=== PATIENT | male | born 1980 | race Caucasian/White ===

== ENCOUNTER → 2020-04-18 15:03 | Outpatient (BNVA) | payer OTHER, SELFPAY | PROVIDERS: PCP Internal Medicine; Referring Provider Internal Medicine; Visit Provider Urology | DX: Z76.89 Persons encountering health services in other specified circumstances (principal) ==

== ENCOUNTER 2021-02-10 07:12 | Outpatient (REF) | payer OTHER, SELFPAY ==
[2021-02-10 08:16] LABS: MANUAL DIFF FLAG NO
[2021-02-10 08:26] LABS: Basophils Percent Auto 0.2 % (0-2); Eosinophils Absolute Auto 0.2 X10*3/uL (0.0-0.4); Eosinophils Percent Auto 4.2 % (0-4); Hematocrit 44.2 % (42-52); Hemoglobin 15.2 g/dl (14.0-18.0); Imm Gran Abs Auto 0.01 X10*3/uL (0.00-0.03); Imm Gran Pct Auto 0.2 % (0.0-0.4); Lymphocytes Absolute Auto 1.5 X10*3/uL (1.2-4.9); Lymphocytes Percent Auto 36.4 % (20-40); Mean Corpuscular HGB Conc 34.4 g/dl (31.0-36.0); Mean Corpuscular Hemoglobin 29.7 pg (27.0-33.0); Mean Corpuscular Volume 86.3 fL (80-98); Mean Platelet Volume 10.4 fL (9.4-12.4); Monocytes Absolute Auto 0.5 X10*3/uL (0.1-1.2); Platelet Count 186 X10*3/uL (160-400); Red Blood Count 5.12 X10*6/uL (4.60-5.80); Red Cell Distribution Width 12.5 % (11.0-16.0); White Blood Count 4.1 X10*3/uL (4.8-10.8)
[2021-02-10 08:51] LABS: Anion Gap 10 (12-20); Blood Urea Nitrogen 14 mg/dL (9-16); Carbon Dioxide 29 mmol/L (22-29); Chloride 107 mmol/L (96-108); Cholesterol 172 mg/dL; Estimated Glomerular Filt Rate > 60; Glucose Fasting 95 mg/dL (60-99); HDL Cholesterol 49 mg/dL; LDL Cholesterol Calculated 110 mg/dl; Potassium 4.7 mmol/L (3.3-5.1); Sodium 141 mmol/L (135-145); Triglycerides 68 mg/dL
[2021-02-10 09:03] LABS: TSH reflex Free T4 2.93 uIU/mL (0.32-4.0)
== END 2021-02-10 07:13 | disposition home or self-care (01) ==
LOC: HO.LAB 07:12
PROVIDERS: PCP Internal Medicine; Visit Provider Nurse Practitioner Family
DX: Z00.00 Encounter for general adult medical examination without abnormal findings (principal)
CPT/HCPCS: 36415; 80048; 80061; 84443; 85025

== ENCOUNTER → 2021-07-31 15:16 | Outpatient (BNVA) | payer OTHER, SELFPAY | PROVIDERS: PCP Internal Medicine; Referring Provider Internal Medicine; Visit Provider Internal Medicine Cardiovascular Disease | DX: E78.5 Hyperlipidemia, unspecified (principal); Z82.49 Family history of ischemic heart disease and other diseases of the circulatory system | CPT/HCPCS: 93005 ==

== ENCOUNTER → 2021-09-11 07:28 | Outpatient (REF) | payer OTHER, SELFPAY ==
--- NOTE | 2021-09-11 07:34 | CA_ITS ---
Transthoracic Echocardiogram Patient (Last, First, Middle): Jaime Rich J Gender: Male Date of : 1980 Age: 41 Procedure Date: 09/11/2021 Procedure Type: Transthoracic Echocardiogram Location: OP Height: 185.42 cm Weight: 81.65 kg BSA: 2.06 m2 Heart Rate: bpm BP: 119 / 80 mmHg Steam Drier Tender: ANTON Referring MD: Jann Soares MD Symptoms: Z82.49 - Family history of ischemic heart disease and oth... Study Quality: Fair ECG Rhythm: Sinus Conclusions: - The left ventricular systolic function is low normal. The visually estimated ejection fraction is between 50-55%. - There is mild calcification of the aortic valve. - No obvious valvular pathology seen on this study. - The sinuses of valsalva, sino tubular ridge, and asc aorta are normal in size. Findings Left Ventricle Normal left ventricular cavity size. There is normal left ventricular wall thickness. The left ventricular systolic function is low normal. The visually estimated ejection fraction is between 50-55%. There is no evidence of regional wall motion abnormalities. Diastolic function is normal for age. Right Ventricle Normal right ventricular cavity size and systolic function. Atria Both atria are normal in size. Aortic Valve There is a normal trileaflet aortic valve. There is mild calcification of the aortic valve. There is no aortic valve stenosis. There is no aortic valve regurgitation. Mitral Valve The mitral valve appears normal. There is trace mitral valve regurgitation. There is no mitral valve stenosis. Pulmonic Valve The pulmonic valve is likely normal. Tricuspid Valve There is trace tricuspid valve regurgitation. The pulmonary artery systolic pressure is normal. Great Vessels The sinuses of valsalva, sino tubular ridge, and asc aorta are normal in size. Venous The inferior vena cava is normal in size and collapses greater than 50% with inspiration. Pericardium/Pleural There is no evidence of pericardial effusion. Prior Study Comparison No prior study available for comparison. Recommendations, Care & Conclusions No obvious valvular pathology seen on this study. Measurements 2D Linear Measurements IVSd: 0.65 0.6-0.9/0.6-1.0 cm LVIDd: 4.65 3.9-5.3/4.2-5.9 cm LVIDd Index: 2.26 2.4-3.2/2.2-3.1 cm/m2 LVIDs: 3.24 2.0-3.6 cm LVPWd: 0.87 0.7-1.1 cm LA Diam: 3.10 2.7-3.8/3.0-4.0 cm LAIDs Index: 1.50 1.5-2.3 cm/m2 LV Mass: 139.71 67-162/88-224 g LV Mass Index: 67.82 43-95/49-115 g/m2 LVOT Diam: 2.30 3.0+(-)1.3 cm 2D Systolic Function EF 4C: 55.00 >55% EF 2C: 61.70 >55% EF BiP: 56.60 >55% Mitral Valve MV Pk E: 0.45 MV PK A: 0.40 MV Decel Time: 264.00 E/A: 1.10 E'Lateral: 12.50 E'Medial: 10.40 E/E' Med: 4.30 E/E' Lat: 3.60 PHT: 77.00 MVA PHT: 2.86 Decel [place]: 1.71 Aortic Valve AoV Pk John: 0.93 AoV Mn John: 0.64 AoV VTI: 0.20 AoV Pk Grad: 3.00 Aov Mn Grad: 2.00 MADHURI Cont.VTI: 3.04 LVOT LVOT Pk John: 0.74 LVOT Mn John: 0.51 LVOT VTI: 0.15 LVOT Pk Grad: 2.00 LVOT Mn Grad: 1.00 LVOT Diam: 2.30 LVOT Area: 4.15 Diastolic Function MV Pk E: 0.45 MV Pk A: 0.40 E/A: 1.10 E'Medial: 10.40 E/E' Med: 4.30 E' Laterial: 12.50 E/E' Lat: 3.60 Right Ventricle TAPSE (mm): 23.00 TVS' John: 12.00 Tricuspid Valve TR Pk John: 2.12 TR Pk Grad: 18.00 RA Press: 3.00 RVSP: 21.00 Great Vessels Aorta Sinus of Valsalva: 3.60 2.0-3.5 cm Ao Asc: 3.20 2.1-3.4 cm Ao Arch: 3.50 Updated in Other Vendor System with Status of Final Bharath Maurer MD electronically signed on 09/11/2021 4:27:11 PM with status of Final
== END ==
LOC: HO.CARD 07:28
PROVIDERS: Visit Provider Internal Medicine Cardiovascular Disease
DX: Z82.49 Family history of ischemic heart disease and other diseases of the circulatory system (principal)
CPT/HCPCS: 93306

== ENCOUNTER 2022-02-06 07:45 | Outpatient (REF) | payer OTHER, SELFPAY ==
[2022-02-08 12:17] LABS: CRP High Sensitivity <0.3 mg/L
== END 2022-02-06 07:46 | disposition home or self-care (01) ==
LOC: HO.HMGCLDS 07:45
PROVIDERS: PCP Internal Medicine; Visit Provider Internal Medicine Cardiovascular Disease
DX: E78.5 Hyperlipidemia, unspecified (principal)
CPT/HCPCS: 36415; 86141

== ENCOUNTER 2022-02-07 07:47 | Outpatient (REF) | payer OTHER, SELFPAY ==
[2022-02-07 11:25] LABS: MANUAL DIFF FLAG NO
[2022-02-07 11:44] LABS: Basophils Percent Auto 0.3 % (0-2); Eosinophils Absolute Auto 0.1 X10*3/uL (0.0-0.4); Hematocrit 47.9 % (42.0-52.0); Hemoglobin 16.1 g/dl (14.0-18.0); Imm Gran Abs Auto 0.01 X10*3/uL (0.00-0.03); Imm Gran Pct Auto 0.3 % (0.0-0.4); Lymphocytes Absolute Auto 1.5 X10*3/uL (1.2-4.9); Mean Corpuscular HGB Conc 33.6 g/dl (31.0-36.0); Mean Corpuscular Hemoglobin 28.9 pg (27.0-33.0); Mean Corpuscular Volume 85.8 fL (80.0-98.0); Mean Platelet Volume 11.1 fL (9.4-12.4); Monocytes Absolute Auto 0.5 X10*3/uL (0.1-1.2); Monocytes Percent Auto 13.4 % (2-11); Neutrophils Absolute Auto 1.8 x10*3/uL (2.0-8.3); Platelet Count 196 X10*3/uL (160-400); Red Blood Count 5.58 X10*6/uL (4.60-5.80); Red Cell Distribution Width 12.1 % (11.0-16.0)
[2022-02-07 12:16] LABS: Erythrocyte Sedimentation Rate 1 MM/HR (0-15)
[2022-02-07 12:21] LABS: Folate 14.1 ng/mL (> or = 4.0); Vitamin B12 240 pg/mL (200-900)
[2022-02-07 12:48] LABS: Alanine Aminotransferase 15 U/L (0-40); Albumin Level 4.8 g/dL (3.5-5.0); Alkaline Phosphatase 50 U/L (39-117); Anion Gap 14 (12-20); Aspartate Amino Transferase 19 U/L (5-37); Bilirubin Total 1.3 mg/dL (0.0-1.0); Blood Urea Nitrogen 18 mg/dL (9-16); Calcium 10.2 mg/dL (8.4-10.2); Carbon Dioxide 30 mmol/L (22-29); Chloride 103 mmol/L (96-108); Cholesterol 203 mg/dL; Estimated Glomerular Filt Rate > 60; Glucose Random 93 mg/dL (60-115); HDL Cholesterol 48 mg/dL; LDL Cholesterol Calculated 129 mg/dl; Potassium 5.4 mmol/L (3.3-5.1); Sodium 142 mmol/L (135-145); Total Protein 7.4 g/dL (6.5-8.0); Triglycerides 134 mg/dL
[2022-02-07 12:49] LABS: Free T4 (Free Thyroxine) 0.92 ng/dL (0.71-1.85)
[2022-02-07 13:51] LABS: Thyroid Stimulating Hormone 2.73 uIU/mL (0.32-4.0)
== END 2022-02-07 07:48 | disposition home or self-care (01) ==
LOC: HO.HMGCLDS 07:47
PROVIDERS: PCP Internal Medicine; Visit Provider Internal Medicine
DX: F41.8 Other specified anxiety disorders (principal); E78.00 Pure hypercholesterolemia, unspecified
CPT/HCPCS: 36415; 80053; 80061; 82607; 82746; 84439; 84443; 85025; 85652

== ENCOUNTER 2022-02-15 11:21 | Outpatient (REF) | payer OTHER, SELFPAY ==
[2022-02-15 14:18] LABS: Anion Gap 16 (12-20); Blood Urea Nitrogen 18 mg/dL (9-16); Calcium 9.9 mg/dL (8.4-10.2); Carbon Dioxide 27 mmol/L (22-29); Chloride 104 mmol/L (96-108); Estimated Glomerular Filt Rate > 60; Glucose Random 54 mg/dL (60-115); Potassium 4.8 mmol/L (3.3-5.1); Sodium 142 mmol/L (135-145)
[2022-02-15 14:41] LABS: Erythrocyte Sedimentation Rate 1 MM/HR (0-15)
[2022-02-18 21:46] LABS: Lyme Abs Screen <0.90 index
== END 2022-02-15 11:22 | disposition home or self-care (01) ==
LOC: HO.HMGCLDS 11:21
PROVIDERS: PCP Internal Medicine; Visit Provider Internal Medicine
DX: M77.8 Other enthesopathies, not elsewhere classified (principal); E87.5 Hyperkalemia
CPT/HCPCS: 36415; 80048; 85652; 86617; 86618

== ENCOUNTER 2022-03-26 07:48 | Outpatient (REF) | payer OTHER, SELFPAY ==
[2022-03-26 11:08] LABS: MANUAL DIFF FLAG NO
[2022-03-26 11:15] LABS: Appearance Urine Clear; Color Urine Yellow; Glucose Urine UA Negative (Negative); Leukocyte Esterase Urine Negative (Negative); Nitrite Urine Negative (Negative); PH 6.5 (5.0-9.0); Specific Gravity - Urine 1.015 (1.005-1.025); Urine Blood Negative (Negative); Urine Ketones Negative (Negative); Urine Protein Negative (Neg-Trace)
[2022-03-26 11:19] LABS: Bacteria Urine None Seen (None Seen); Hyaline Casts Urine 0-2 /LPF (0-2); RBC Urine 0-2 /HPF (0-2); Squamous Epithelial Cell Urine 0-2 /HPF (0-2); WBC Urine 0-5 /HPF (0-5)
[2022-03-26 11:36] LABS: Basophils Percent Auto 0.2 % (0-2); Eosinophils Absolute Auto 0.1 X10*3/uL (0.0-0.4); Eosinophils Percent Auto 3.2 % (0-4); Hematocrit 48.2 % (42.0-52.0); Imm Gran Abs Auto 0.02 X10*3/uL (0.00-0.03); Imm Gran Pct Auto 0.5 % (0.0-0.4); Lymphocytes Absolute Auto 1.5 X10*3/uL (1.2-4.9); Lymphocytes Percent Auto 34.1 % (20-40); Mean Corpuscular HGB Conc 33.2 g/dl (31.0-36.0); Mean Corpuscular Hemoglobin 28.6 pg (27.0-33.0); Mean Corpuscular Volume 86.1 fL (80.0-98.0); Mean Platelet Volume 10.6 fL (9.4-12.4); Monocytes Absolute Auto 0.5 X10*3/uL (0.1-1.2); Monocytes Percent Auto 11.9 % (2-11); Neutrophils Absolute Auto 2.2 x10*3/uL (2.0-8.3); Neutrophils Percent Auto 50.1 % (45-73); Platelet Count 199 X10*3/uL (160-400); Red Cell Distribution Width 12.6 % (11.0-16.0); White Blood Count 4.4 X10*3/uL (4.8-10.8)
[2022-03-26 12:03] LABS: Thyroid Stimulating Hormone 2.63 uIU/mL (0.32-4.0)
[2022-03-26 12:10] LABS: Alanine Aminotransferase 13 U/L (0-40); Albumin Level 4.6 g/dL (3.5-5.0); Alkaline Phosphatase 44 U/L (39-117); Anion Gap 14 (12-20); Aspartate Amino Transferase 17 U/L (5-37); Blood Urea Nitrogen 15 mg/dL (9-16); Carbon Dioxide 30 mmol/L (22-29); Chloride 104 mmol/L (96-108); Estimated Glomerular Filt Rate > 60; Glucose Random 88 mg/dL (60-115); Potassium 4.7 mmol/L (3.3-5.1); Sodium 143 mmol/L (135-145)
[2022-03-26 12:20] LABS: Erythrocyte Sedimentation Rate 1 MM/HR (0-15)
== END 2022-03-26 07:49 | disposition home or self-care (01) ==
LOC: HO.HMGCLDS 07:48
PROVIDERS: PCP Internal Medicine; Visit Provider Internal Medicine
DX: R42 Dizziness and giddiness (principal)
CPT/HCPCS: 36415; 80053; 81001; 84443; 85025; 85652

== ENCOUNTER 2022-04-16 | Outpatient (REF) | payer OTHER, SELFPAY | END 2022-04-16 00:01 | disposition home or self-care (01) | LOC: HO.HOSX | PROVIDERS: Visit Provider Physician Assistant | DX: Z13.89 Encounter for screening for other disorder (principal) ==

== ENCOUNTER 2022-07-10 11:46 | Outpatient (REF) | payer OTHER, SELFPAY ==
--- NOTE | 2022-07-10 10:15 | EMG_ITS ---
Please see scanned EMG / Nerve Conduction Report. MTDD
== END 2022-07-10 11:47 | disposition home or self-care (01) ==
LOC: HO.NEURO 11:46
PROVIDERS: PCP Internal Medicine; Visit Provider Internal Medicine
DX: R20.0 Anesthesia of skin (principal)
CPT/HCPCS: 95885; 95910

== ENCOUNTER → 2022-08-01 15:18 | Outpatient (BNVA) | payer OTHER, SELFPAY | PROVIDERS: PCP Internal Medicine; Referring Provider Internal Medicine; Visit Provider Internal Medicine Cardiovascular Disease | DX: Z91.89 Other specified personal risk factors, not elsewhere classified (principal) | CPT/HCPCS: 93005 ==

== ENCOUNTER → 2022-10-01 08:00 | Outpatient (BNVA) | payer OTHER, SELFPAY | PROVIDERS: PCP Internal Medicine; Visit Provider Psychiatry & Neurology Neurology | DX: Z13.89 Encounter for screening for other disorder (principal) ==

== ENCOUNTER → 2022-10-15 15:52 | Outpatient (REF) | payer OTHER, SELFPAY | LOC: HO.SL 15:52 | PROVIDERS: PCP Internal Medicine; Visit Provider Psychiatry & Neurology Neurology | DX: G47.00 Insomnia, unspecified (principal); R06.83 Snoring | CPT/HCPCS: 95806 ==

== ENCOUNTER 2022-11-19 07:48 | Outpatient (REF) | payer OTHER, SELFPAY ==
[2022-11-19 11:37] LABS: Hematocrit 46.2 % (42.0-52.0); Hemoglobin 15.5 g/dl (14.0-18.0); Mean Corpuscular HGB Conc 33.5 g/dl (31.0-36.0); Mean Corpuscular Hemoglobin 29.2 pg (27.0-33.0); Platelet Count 185 X10*3/uL (160-400); Red Blood Count 5.31 X10*6/uL (4.60-5.80); Red Cell Distribution Width 12.2 % (11.0-16.0); White Blood Count 4.1 X10*3/uL (4.8-10.8)
[2022-11-19 12:06] LABS: Anion Gap 11 (12-20); Blood Urea Nitrogen 17 mg/dL (9-16); Calcium 10.4 mg/dL (8.4-10.2); Carbon Dioxide 30 mmol/L (22-29); Chloride 105 mmol/L (96-108); Estimated Glomerular Filt Rate > 60; Glucose Random 72 mg/dL (60-115); Potassium 4.3 mmol/L (3.3-5.1); Sodium 142 mmol/L (135-145)
== END 2022-11-19 07:49 | disposition home or self-care (01) ==
LOC: HO.HMGCLDS 07:48
PROVIDERS: PCP Internal Medicine; Visit Provider Nurse Practitioner Family
DX: R42 Dizziness and giddiness (principal)
CPT/HCPCS: 36415; 80048; 85027

== ENCOUNTER 2022-12-13 14:12 | Outpatient (AMB) | payer OTHER, SELFPAY ==
--- NOTE | 2022-12-13 14:19 | MHC.OFFVIS ---
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 He is seen for the following urologic conditions - anxiety about health - vasectomy consultation Repeat evaluation Vasectomy evaluation The patient presents for vasectomy consultation. He is currently He has fathered multiple children with single partner The youngest child is greater than 1-year-old His partner is aware and permissive for vasectomy. Current form of control is hormonal The vasectomy may be complicated due to a history of no complicating issues, inguinal hernia repair, orchidopexy, history of orchitis, orchiectomy. Patient education has been provided via AUA video, via printed information, risks of failure, recovery time, bruising and potential pain syndrome have been stressed Discussion today focused on the presence of vasectomy and the risks, benefits and alternatives that are available. Vasectomy as intended as a permanent form of control. Printed information and literature was provided to the patient. Overall there is a one in 2500 failure rate. This can occur at any time after vasectomy. Risks were discussed highlighting hematoma, spermatocele, epididymal congestion, development of sperm antibodies, and development of chronic pain estimated between 1-5%. The procedure was reviewed in detail. Anatomical diagrams of the male genitalia were used to explain the location of the vas deferens. The vas deferens will be transected, the proximal end will be cauterized, a metal clip would be applied to separate the 2 vas deferens ends. It was explained the procedure will be done in the office and takes approximately 10-15 minutes. Less common problems that arise with vasectomy include hematoma, bleeding, allergic reaction to anesthetic, epididymal infection, epididymal congestion, scrotal discomfort, spermatic leak, spermatic granuloma and the possibility of antisperm antibodies. He understands these risks and wishes to proceed. Consent was signed at the office today. He also understands that it takes 12 weeks for sperm to fully clear the system. He will need to provide a semen sample at 12 weeks and if this is not clear a 2nd sample at 16 weeks. Medical clearance to stop using protection will only be provided if he satisfies published criteria for sperm clearance. [facility] Medical History (Updated 12/13/22 @ 14:38 by Kevin Robles MD) Anxiety about health Bilateral arm pain Insomnia Snoring Tingling Upper back pain Surgical History H/O left wrist surgery Family History Father Aortic aneurysm Mother S/P CABG x 1 Maternal Grandmother Lung cancer Maternal Grandfather Myocardial infarction Paternal Grandfather Stomach cancer Parkinson disease Paternal Uncle Parkinson disease Social History Housing: House Alcohol intake: current Patient Tobacco Use Status: Never used Tobacco e-Cigarette/Vaping Use: Never Used Second Hand Smoke Exposure: No Current occupational status: employed Cognitive needs: No Hearing needs: No Vision needs: No Review of Systems Const Denies chills and Denies fever(s) Card Reports no additional complaints and Denies syncope Resp Denies cough GI Denies abdominal pain and Denies heartburn Reports as per HPI and Denies change in libido Neuro Denies syncope Psych Denies change in libido Endo Denies change in libido Physical Exam Const General: cooperative, healthy appearing, comfortable and no acute distress Orientation/consciousness: patient oriented x3 HEENT Face and sinus: Yes normal facial exam Mouth: moist mucous membranes Neck Neck: Yes normal visual inspection, Yes full ROM and Yes trachea midline Chest Chest palpation & inspection: normal inspection of the chest Resp Effort & Inspection: normal respiratory effort, able to speak in complete sentences and no respiratory distress GI Inspection: Yes normal to inspection Back/Spine/Pelvis Cervical Spine: normal cervical lordosis Thoracic/Lumbar Spine: thoracic and lumbar spine normal to inspection Skin General skin exam: no rashes or lesions noted Neuro General: patient oriented x3, gait normal, tone normal and moves all extremities Extrem General: Yes normal to inspection and Yes capillary refill normal Assessment & Plan Assessment & Plan (1) Anxiety about health: Code(s): F41.8 - Other specified anxiety disorders Plan Schedule vasectomy Medications: New diazepam Take medication after arrival at office 2 mg PO BID 1 day PRN 2 tabs 0RF anxiety F41.8 - Other specified anxiety disorders acetaminophen-codeine 300-30 mg 1 tab PO Q8H 3 days 9 tabs 0RF F41.8 - Other specified anxiety disorders Patient Instructions: Imaging studies, laboratory and physical exam results were discussed and reviewed in detail. No major barriers to patient understanding were identified. An opportunity to ask questions regarding the treatment plan was provided. All questions were answered. The patient expressed understanding and agreement with the above treatment plan. The patient is aware they should contact our office by phone for worsening of their current condition or the appearance of new urologic symptoms. Compliance is encouraged with any medications and followup testing that is ordered. It is a privilege to participate in the urologic care of your patient. If you have any questions or concerns regarding treatment for the above conditions, or other urologic issues, please do not hesitate to contact me. The office telephone contact is [phone]. This note is constructed using voice recognition software. While every effort has been made to ensure accuracy electric meter installer helper errors may have been included. Yours sincerely, Dr Kevin Robles MD, [facility] - Urology Providers of Expert, Compassionate Care for the Genitourinary System Coding Level of Care Code New Pt Level 4 (12490) Diagnoses Anxiety about health F41.8
== END 2022-12-13 14:38 | disposition home or self-care (01) ==
PROVIDERS: Visit Provider Urology
DX: Z30.09 Encounter for other general counseling and advice on contraception (principal); F41.8 Other specified anxiety disorders
CPT/HCPCS: 99214

== ENCOUNTER → 2022-12-13 14:12 | Outpatient (BNVA) | payer OTHER, SELFPAY | PROVIDERS: Visit Provider Urology ==

== ENCOUNTER 2023-02-20 07:39 | Outpatient (REF) | payer OTHER, SELFPAY ==
[2023-02-20 11:53] LABS: Calcium 10.2 mg/dL (8.4-10.2)
[2023-02-24 14:38] LABS: PTHI 25 pg/mL (16-77)
== END 2023-02-20 07:40 | disposition home or self-care (01) ==
LOC: HO.HMGCLDS 07:39
PROVIDERS: PCP Internal Medicine; Visit Provider Nurse Practitioner Family
DX: E83.52 Hypercalcemia (principal)
CPT/HCPCS: 36415; 82310; 83970

== ENCOUNTER 2023-02-20 14:52 | Outpatient (AMB) | payer OTHER, SELFPAY ==
--- NOTE | 2023-02-20 14:56 | AM.OFFWIN_ITS ---
Intake Vital Signs 02/20/23 15:00 Height 6 ft 1 in Weight 191 lb BMI 25.2 BP 122/80 Blood Pressure Location Rt brachial Position Sitting Pulse 67 Pulse Source Pulse Oximeter Temp 98.1 F Temp Source Oral Pulse Oximetry (%) 99 Oxygen Delivery Method Room Air Intake Visit Reasons: EST/groin pain Intake Note: Patient is here today for pain in groin area which he states Rt side feels uncomfortable. Pt states this started occurring from the beginning of December. Patient Tobacco Use Status: Never used Tobacco Allergies Seasonal Allergies Allergy (Intermediate, Verified 02/20/23 14:57) Sneezing Do you need a note to return to daycare/school/sports/work: No HPI HPI Comments History of Present Illness Details The patient presents to urgent care for evaluation groin pain. 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 He states that since that time it has been on and off with discomfort. He states that it bothers him after he has been walking or sitting for an extended period of time. He states that he gets pain that radiates up to his abdomen and causes some tingling in his abdomen. He denies scrotal pain or fullness. Denies abdominal pain. The patient reports that he occasionally uses ibuprofen for this. [facility] Medical History (Updated 12/13/22 @ 14:38 by Kevin Robles MD) Upper back pain Tingling Snoring Insomnia Bilateral arm pain Anxiety about health Surgical History H/O left wrist surgery Family History Father Aortic aneurysm Mother S/P CABG x 1 Maternal Grandmother Lung cancer Maternal Grandfather Myocardial infarction Paternal Grandfather Stomach cancer Parkinson disease Paternal Uncle Parkinson disease Social History Housing: House Alcohol intake: current Patient Tobacco Use Status: Never used Tobacco e-Cigarette/Vaping Use: Never Used Second Hand Smoke Exposure: No Current occupational status: employed Cognitive needs: No Hearing needs: No Vision needs: No Physical Exam Vital Signs: Last Vital Signs Temp 98.1 F 02/20/23 15:00 Pulse 67 02/20/23 15:00 BP 122/80 02/20/23 15:00 Pulse Ox 99 02/20/23 15:00 Oxygen Delivery Method Room Air 02/20/23 15:00 BMI result Body Mass Index 25.2 Const General: healthy appearing and no acute distress Orientation/consciousness: patient oriented x3 Eyes Corneas: corneas normal Pupils: Equal, round and reactive pupils present Chest Chest palpation & inspection: no tenderness Resp Effort & Inspection: normal respiratory effort and able to speak in complete sentences GI Other: Soft nontender Inspection: Yes normal to inspection Palpation (GI): nontender Neuro General: patient oriented x3 Cranial nerves: Yes Equal, round and reactive pupils present Extrem Other: Right lower extremity: Right groin muscle tenderness to palpation. No bruising no swelling. Full range of motion of the right lower extremity. Psych Appearance: grossly normal Attitude: cooperative Assessment & Plan Assessment & Plan (1) Strain of right groin: Code(s): S76.211A - Strain of adductor muscle, fascia and tendon of right thigh, initial encounter Plan Right groin strain. Recommend ibuprofen as needed. Follow-up with PCP return here for any reason Coding Level of Care Code Est Pt Level 3 (70911) Diagnoses Strain of right groin S76.211A
[2023-02-20 15:00] VITALS: BP 122/80; PULSE 67; TEMP 36.7; O2SAT 99; BMI 25.2
== END 2023-02-20 15:58 | disposition home or self-care (01) ==
PROVIDERS: PCP Internal Medicine; Visit Provider Emergency Medicine
DX: S76.211A Strain of adductor muscle, fascia and tendon of right thigh, initial encounter (principal)
CPT/HCPCS: 99213

== ENCOUNTER 2023-02-27 10:03 | Outpatient (AMB) | payer OTHER, SELFPAY ==
[2023-02-27 10:08] VITALS: BP 136/68; PULSE 58; O2SAT 98; BMI 24.9
--- NOTE | 2023-02-27 10:08 | A.OFFPC_ITS ---
Vital Signs 02/27/23 10:08 Height 6 ft 1 in Weight 189 lb BMI 24.9 BP 136/68 Blood Pressure Location Lt brachial Position Sitting Pulse 58 Pulse Source Pulse Oximeter Pulse Oximetry (%) 98 Oxygen Delivery Method Room Air Intake Visit Reasons: Groin pain Allergies Seasonal Allergies Allergy (Intermediate, Verified 02/27/23 10:08) Sneezing Medication List - Last Reconciled 02/27/23 by Erik Villasenor MD acetaminophen-codeine 300-30 mg 1 tab PO Q8H 3 days ciprofloxacin HCl 500 mg PO BID diazepam 2 mg PO BID PRN 1 day fluticasone propionate 50 mcg/actuation 1 spray intranasal DAILY meclizine 25 mg PO BID PRN Tobacco use date assessed: 11/12/22 Dental Screening Dental Screen Date: 02/27/23 Did you have a dental visit in the last 12 months?: Yes Did you have a dental problem in the last 6 months where you did not have access to dental care?: No Was dental information given to patient?: Patient has dentist HPI Groin pain HPI Details 42-year-old male with a history of gener alized anxiety disorder and insomnia coming in for follow-up. Patient was seen in July 2022 for dizziness.. 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 Also noted in November had evaluation for vasectomy but did not do do.. Patient had blood work done in October 2022 started 12/2022 , no rash or redness PFSH Medical History (Updated 02/27/23 @ 11:00 by Erik Villasenor MD) Right groin pain Upper back pain Tingling Snoring Insomnia Bilateral arm pain Anxiety about health Surgical History H/O left wrist surgery Family History (Updated 02/27/23 @ 10:09 by Chio Díaz CMA) Father Aortic aneurysm Mother S/P CABG x 1 Maternal Grandmother Lung cancer Maternal Grandfather Myocardial infarction Paternal Grandfather Stomach cancer Parkinson disease Paternal Uncle Parkinson disease Social History Housing: House Alcohol intake: current Patient Tobacco Use Status: Never used Tobacco e-Cigarette/Vaping Use: Never Used Second Hand Smoke Exposure: No Current occupational status: employed Cognitive needs: No Hearing needs: No Vision needs: No Questionnaire PHQ-9 Over the last 2 weeks, how often have you been bothered by any of the following problems? 1. Little interest or pleasure in doing things: not at all 2. Feeling down, depressed, or hopeless: not at all 3. Trouble falling or staying asleep, or sleeping too much: not at all 4. Feeling tired or having little energy: not at all 5. Poor appetite or overeating: not at all 6. Feeling bad about yourself - or that you are a failure or have let yourself or your family down: not at all 7. Trouble concentrating on things, such as reading the newspaper or watching television: not at all 8. Moving or speaking so slowly that other people could have noticed. Or the opposite - being so fidgety or restless that you have been moving around a lot more than usual: not at all 9. Thoughts that you would be better off or of hurting yourself in some way: not at all Total score: 0 Depression Screening Interpretation: Negative Source: Developed by Drs. Chepe Haney, Mary Hong, Nader Chase and colleagues, with an educational cecilia from [employer]. Thrive Questionnaire Date Thrive assessed: 07/04/22 AUDIT C Alcohol Use Questionnaire (AUDIT-C) 1. How often do you have a drink containing alcohol?: Monthly or less 2. How many drinks containing alcohol do you have on a typical day when you are drinking?: 1 or 2 3. How often do you have six or more drinks on one occasion?: Never Total Score: 1 Score Reviewed/Action Taken: No ANNIA-7 AMB Questionnaire ANNIA-7 Date ANNIA - 7 assessed: 07/04/22 Source: Developed by Drs. Chepe Haney, Nader Anand and colleagues, with an educational cecilia from [employer]. Physical exam (Primary Care) Vital Signs: Last Vital Signs Pulse 58 02/27/23 10:08 BP 136/68 02/27/23 10:08 Pulse Ox 98 02/27/23 10:08 Oxygen Delivery Method Room Air 02/27/23 10:08 BMI result Body Mass Index 24.9 Tobacco/Smoking Status: Tobacco use Status Tobacco use date assessed 11/12/22 02/27/23 10:09 Patient Tobacco Use Status Never used Tobacco 02/27/23 10:09 e-Cigarette/Vaping Use Never Used 02/27/23 10:09 PHQ-9: PHQ-9 Score PHQ-9: Total score 0 02/27/23 10:44 Depression Screening Interpretation: Negative Thrive Assessment: Date of Thrive Assessment Date Thrive assessed 07/04/22 02/27/23 10:09 Const General: alert; No acute distress Eyes Conjunctivae: conjunctivae normal Resp Auscultation: clear to auscultation bilaterally Cardio Rate: regular rate Rhythm: regular rhythm GI Inspection: Yes normal to inspection Other: mild tender R testicle no swelling no redness noted no hernias noted also Extrem General: Yes normal to inspection and No edema Results AMB Urinalysis, Automated UA Leukoctes 0 Aye/uL Last Edit by Chio Díaz CMA on 02/27/23 11:01 UA Nitrite Negative Last Edit by Chio Díaz CMA on 02/27/23 11:01 UA Urobilinogen 0.2 mg/dL Last Edit by Chio Díaz [facility] on 02/27/23 11:01 UA Protein 0 mg/dL Last Edit by Chio Díaz CMA on 02/27/23 11:01 UA pH 6.0 Last Edit by Chio Díaz CMA on 02/27/23 11:01 UA Blood 0 Francois/uL Last Edit by Chio Díaz CMA on 02/27/23 11:01 UA Specific [place] 1.015 Last Edit by Chio Díaz CMA on 02/27/23 11:01 UA Ketone Negative Last Edit by Chio Díaz CMA on 02/27/23 11:01 UA Bilirubin 0 mg/dL Last Edit by Chio Díaz CMA on 02/27/23 11:01 UA Glucose 0 mg/dL Last Edit by Chio Díaz CMA on 02/27/23 11:01 Assessment and Plan Assessment & Plan (1) Right groin pain: Code(s): R10.31 - Right lower quadrant pain Plan: No groin pain (2) Generalized anxiety disorder: Code(s): F41.1 - Generalized anxiety disorder Plan: Continue with medication (3) Acute epididymitis: Code(s): N45.1 - Epididymitis Plan: Dating as epididymitis, ultrasound requested Orders: Orders AMB Urinalysis Automated Today R10.31 - Right lower quadrant pain, Z13.9 - Encounter for screening, unspecified US scrotum Today N45.1 - Epididymitis Medications: New ciprofloxacin HCl 500 mg PO BID 14 tabs 0RF N45.1 - Epididymitis ciprofloxacin HCl 500 mg PO BID 14 tabs 0RF N45.1 - Epididymitis Coding Level of Care Code Est Pt Level 3 (97958) Diagnoses Right groin pain R10.31 Generalized anxiety disorder F41.1 Acute epididymitis N45.1
== END 2023-02-27 11:04 | disposition home or self-care (01) ==
PROVIDERS: PCP Internal Medicine; Visit Provider Internal Medicine
DX: R10.31 Right lower quadrant pain (principal); F41.1 Generalized anxiety disorder; N45.1 Epididymitis
CPT/HCPCS: 81003; 99213

== ENCOUNTER 2023-03-20 13:08 | Outpatient (REF) | payer OTHER, SELFPAY ==
--- NOTE | ~2023-03-20 | US_ITS ---
EXAMINATION: US SCROTUM CLINICAL INFORMATION: Epididymitis. COMPARISON: None available. TECHNIQUE: A sonogram of the scrotum was performed assessing hopkins-scale appearance and color Doppler flow. Spectral Doppler analysis of the arterial and venous flow were performed in the testes bilaterally. FINDINGS: RIGHT: Right testicle measures 4.70 x 2.37 x 3.71 cm, volume 21.6 mL. No focal testicular parenchymal lesions are visualized. Spectral Doppler analysis of the arterial and venous flow is normal in the right testis. Right epididymal head is normal in size. Trace physiologic volume fluid in the scrotal sac. No definite varicocele. Right epididymal Doppler flow is normal. LEFT: Left testicle measures 4.70 x 2.30 x 3.47 cm, volume 19.6 mL. No focal testicular parenchymal lesions are visualized. Spectral Doppler analysis of the arterial and venous flow is normal in the left testis. Left epididymal head is normal in size. Trace physiologic volume of fluid in the scrotal sac. Small left varicocele. Left epididymal Doppler flow is increased. US/US scrotum IMPRESSION: 1. Left epididymal Doppler flow is increased which can be seen in the setting of epididymitis.. 2. Small left varicocele.
== END 2023-03-20 13:09 | disposition home or self-care (01) ==
LOC: HO.HMGCX 13:08
PROVIDERS: PCP Internal Medicine; Visit Provider Internal Medicine
DX: N45.1 Epididymitis (principal)
CPT/HCPCS: 76870

== ENCOUNTER 2023-04-15 07:55 | Outpatient (AMB) | payer OTHER, SELFPAY ==
[2023-04-15 08:06] VITALS: BP 122/78; PULSE 78; TEMP 36.7; O2SAT 98; BMI 25.1
--- NOTE | 2023-04-15 08:06 | AM.OFFWIN_ITS ---
Intake Vital Signs 04/15/23 08:06 Height 6 ft 1 in Weight 190 lb BMI 25.1 BP 122/78 Blood Pressure Location Rt brachial Position Sitting Pulse 78 Pulse Source Pulse Oximeter Temp 98.1 F Temp Source Temporal Artery Scan Pulse Oximetry (%) 98 Oxygen Delivery Method Room Air Intake Visit Reasons: EST/sore throat(lobby masked) Intake Note: pt is here for c/o sore throat Patient Tobacco Use Status: Never used Tobacco Allergies Seasonal Allergies Allergy (Intermediate, Verified 04/15/23 08:07) Sneezing Do you need a note to return to daycare/school/sports/work: Yes HPI HPI Comments History of Present Illness Details Patient is a 42-year-old male in today for a sick visit. Patient states that for the past day he has experienced body aches, chills, and a sore throat which hurts when he swallows. He denies chest pain and difficulty breathing. 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 Denies cough, wheeze, ear pain. Has tried at home remedies like salt water gargle with some relief. [facility] Medical History (Updated 02/27/23 @ 11:00 by Erik Villasenor MD) Right groin pain Upper back pain Tingling Snoring Insomnia Bilateral arm pain Anxiety about health Surgical History H/O left wrist surgery Family History (Updated 02/27/23 @ 10:09 by Chio Díaz CMA) Father Aortic aneurysm Mother S/P CABG x 1 Maternal Grandmother Lung cancer Maternal Grandfather Myocardial infarction Paternal Grandfather Stomach cancer Parkinson disease Paternal Uncle Parkinson disease Social History Housing: House Alcohol intake: current Patient Tobacco Use Status: Never used Tobacco e-Cigarette/Vaping Use: Never Used Second Hand Smoke Exposure: No Current occupational status: employed Cognitive needs: No Hearing needs: No Vision needs: No Review of Systems Const Details: Constitutional : No Weight loss, No Fever, Admits body aches and chills. ENT/Mouth : Sore throat, No Rhinorrhea Eyes: No Eye Pain, No Swelling, No Redness Cardiovascular : No Chest Pain, No SOB, No Dyspnea on Exertion, No Orthopnea, No Edema, No Palpitations Respiratory : No Cough, No Sputum, No Wheezing Neuro : No Weakness, No Numbness, No Dizziness, No Headache All other systems reviewed and are negative All systems reviewed & are unremarkable except as noted in HPI and below Physical Exam Vital Signs: Last Vital Signs Temp 98.1 F 04/15/23 08:06 Pulse 78 04/15/23 08:06 BP 122/78 04/15/23 08:06 Pulse Ox 98 04/15/23 08:06 Oxygen Delivery Method Room Air 04/15/23 08:06 BMI result Body Mass Index 25.1 Vital signs reviewed and are stable Appearance: Alert.? Oriented X3.? No acute distress.? Head: Normocephalic, atraumatic, no step-offs or deformities Eyes: Pupils equal, round and reactive to light.? ENT: Pharynx erythema with no exudate. ? Neck: Normal inspection.? Neck supple.? CVS: Normal heart rate and rhythm.? Pulses normal.? Respiratory: No respiratory distress.? Breath sounds normal.? Neuro: Oriented X 3.? Results AMB Rapid Strep AMB Rapid Strep Negative Last Edit by Johnathan Galvan CMA on 04/15/23 08 :31 Assessment & Plan Assessment & Plan (1) Pharyngitis: Code(s): J02.9 - Acute pharyngitis, unspecified Qualifiers: Pharyngitis/tonsillitis etiology: unspecified etiology Qualified Code(s): J02.9 - Acute pharyngitis, unspecified Plan: The patient will be prescribed azithromycin and prednisone to be taken as directed. Patient has also been instructed that he can use [id number]-[id number] remedies like Tylenol and Motrin, as well as cepacol spray or drop. The patient indicates he will continue to use salt water gargle. He has been instructed to change out his toothbrush. He has been educated on signs of worsening symptoms and when to return to the walk-in or when to present to the emergency room. Orders: Orders AMB Rapid Strep Screen Today Z13.9 - Encounter for screening, unspecified SARS-CoV2/FLU/RSV Today J06.9 - Acute upper respiratory infection, unspecified Medications: New azithromycin 250 mg PO ONCE 6 tabs 0RF prednisone 40 mg (2 x 20 mg) PO DAILY 4 tabs 0RF Coding Level of Care Code Est Pt Level 3 (24309) Diagnoses Pharyngitis, unspecified etiology J02.9 Pharyngitis/tonsillitis etiology: unspecified etiology
== END 2023-04-15 09:06 | disposition home or self-care (01) ==
PROVIDERS: PCP Internal Medicine; Visit Provider Nurse Practitioner Primary Care
DX: J02.9 Acute pharyngitis, unspecified (principal)
CPT/HCPCS: 87880; 99213; 99499

== ENCOUNTER 2023-04-15 08:40 | Outpatient (REF) | payer OTHER, SELFPAY ==
[2023-04-15 14:39] LABS: Influenza A PCR NEGATIVE (Negative); Influenza B PCR NEGATIVE (Negative); Resp Syncy Virus RNA Qual PCR NEGATIVE (Negative); SARS COV2 PCR INHOUSE NEGATIVE (Negative)
== END 2023-04-15 08:41 | disposition home or self-care (01) ==
LOC: HO.LAB 08:40
PROVIDERS: Visit Provider Nurse Practitioner Primary Care
DX: J06.9 Acute upper respiratory infection, unspecified (principal); Z11.52 Encounter for screening for COVID-19
CPT/HCPCS: 0241U

== ENCOUNTER 2023-04-23 11:01 | Outpatient (AMB) | payer OTHER, SELFPAY ==
--- NOTE | 2023-04-23 11:10 | MHC.OFFVIS ---
Intake Intake Visit Reasons: Epididymitis Intake Note: Patient presents for office visit for epididymitis Urology Medications: none Blood Thinner: none Field Naturalist Required: No Accompanied by: Self / Same As Patient Allergies Seasonal Allergies Allergy (Intermediate, Verified 04/25/23 09:35) Sneezing Medication List - Last Reconciled 04/25/23 by GUTIERREZ Wright doxycycline hyclate 100 mg PO BID 14 days fluticasone propionate 50 mcg/actuation 1 spray intranasal DAILY meloxicam 15 mg PO DAILY 30 days sertraline 25 mg PO DAILY HPI HPI Comments History of Present Illness Details Jaime is a very pleasant 42-year-old male patient of Dr. Villasenor. He presents to the office today for follow-up of his ongoing right-sided groin/scrotal/testicular discomfort he has been experiencing. Discussed with the patient today he reports previously following up here with Dr. Robles approximately 4 months ago for vasectomy consultation however has since been experiencing right-sided scrotal/groin and testicular discomfort he has since postponed his vasectomy. He discusses in the late summer following up with urgent care for what he believed to be a groin strain after playing/kicking a soccer ball around. He states he then followed up with his PCP last month as the discomfort continued. In review of [facility] chart it appears scrotal ultrasound was ordered and performed. These results reviewed with the patient today. Left epididymal Doppler flow was increased which can be seen in the setting of epididymitis. Small left varicocele. He reports discomfort is intermittent and describes pain as a dull ache/sensation to his right-sided groin/scrotum. In assessment of the patient today left-sided scrotum/testicle with no abnormalities or pain elicited on exam. However, in assessment of the right-sided testicle in scrotum patient with right-sided testicular tenderness and epididymal head tenderness otherwise no lesions, lumps, and or masses noted. When asked he does report to be taking as needed Tylenol and or Motrin with improvement in discomfort. He reports discomfort to be a dull ache and reports it is intermittent in nature. He denies any associated nausea or vomiting. He otherwise denies any bothersome urinary issues or concerns. He denies urinary urgency, urinary frequency, incontinence, nocturia, hematuria, dysuria, foul smelling urine, changes to urinary stream, flank pain, fever, and or chills. He is happy with her current voiding parameters. In office urinalysis results reviewed with the patient today. He otherwise offers no other issues or concerns at this time. [facility] Medical History Right groin pain Upper back pain Tingling Snoring Insomnia Bilateral arm pain Anxiety about health Surgical History H/O left wrist surgery Family History Father Aortic aneurysm Mother S/P CABG x 1 Maternal Grandmother Lung cancer Maternal Grandfather Myocardial infarction Paternal Grandfather Stomach cancer Parkinson disease Paternal Uncle Parkinson disease Housing: House Alcohol intake: current Patient Tobacco Use Status: Never used Tobacco e-Cigarette/Vaping Use: Never Used Second Hand Smoke Exposure: No Current occupational status: employed Cognitive needs: No Hearing needs: No Vision needs: No Review of Systems Const All systems reviewed & are unremarkable except as noted in HPI and below Physical Exam Const General: cooperative, healthy appearing, comfortable, no acute distress, well developed, alert and awake Orientation/consciousness: patient oriented x3 Limitations: no limitations HEENT Head: Yes normal to inspection, Yes normocephalic and Yes atraumatic Ears: hearing grossly normal bilaterally Eyes General: appearance normal, both eyes and all related structures Neck Neck: Yes normal visual inspection and Yes trachea midline Chest Chest palpation & inspection: normal inspection of the chest Resp Effort & Inspection: normal respiratory effort and able to speak in complete sentences Cardio Rate: regular rate GI Inspection: Yes normal to inspection General: Yes no CVA tenderness Penis: normal penis Meatus: meatus normal Scrotum: scrotum normal Testes: epididymal tenderness (right side) and testicular tenderness on the right Back/Spine/Pelvis Back: no CVA tenderness Skin General skin exam: no rashes or lesions noted Neuro General: patient oriented x3 Extrem General: Yes normal to inspection Psych Appearance: grossly normal and well kempt Mental Status: mental status grossly normal Speech and movement: Normal speech and movement present and Clear speech present Affect: normal affect Attitude: cooperative Thought process: Normal thought process present Thought content: Normal thought content present Insight: Good insight present (Psych) Judgement: Good judgement present (Psych) Results AMB Urinalysis, Automated UA Leukoctes 0 Aye/uL Last Edit by Domenico Sousa on 04/23/23 11:38 UA Nitrite Negative Last Edit by Domenico Sousa on 04/23/23 11:38 UA Urobilinogen 0.2 mg/dL Last Edit by Domenico Sousa on 04/23/23 11:38 UA Protein 0 mg/dL Last Edit by [employer] Sousa on 04/23/23 11:38 UA pH 6.5 Last Edit by Domenico Sousa on 04/23/23 11:38 UA Blood 0 Francois/uL Last Edit by [employer] on 04/23/23 11:38 UA Specific [place] 1.015 Last Edit by [employer] Sousa on 04/23/23 11:38 UA Ketone Negative Last Edit by [employer] Sousa on 04/23/23 11:38 UA Bilirubin 0 mg/dL Last Edit by [employer] Sousa on 04/23/23 11:38 UA Glucose 0 mg/dL Last Edit by [employer] Sousa on 04/23/23 11:38 Results Reviewed Results Reviewed: Laboratory Last Values Urine pH (Auto) 6.5 04/23/23 11:16 Specific [place] (Auto) 1.015 04/23/23 11:16 Urine Protein (Auto) 0 mg/dL 04/23/23 11:16 Glucose (UA)(Auto) 0 mg/dL 04/23/23 11:16 Urine Ketones (Auto) Negative 04/23/23 11:16 Urine Blood (Auto) 0 Francois/uL 04/23/23 11:16 Urine Nitrite (Auto) Negative 04/23/23 11:16 Urine Bilirubin (Auto) 0 mg/dL 04/23/23 11:16 Urine Urobilinogen (Auto) 0.2 mg/dL 04/23/23 11:16 Leukocyte Esterase (Auto) 0 Aye/uL 04/23/23 11:16 Date of Service: 03/20/23 EXAMINATION: US SCROTUM FINDINGS: RIGHT: Right testicle measures 4.70 x 2.37 x 3.71 cm, volume 21.6 mL. No focal testicular parenchymal lesions are visualized. Spectral Doppler analysis of the arterial and venous flow is normal in the right testis. Right epididymal head is normal in size. Trace physiologic volume fluid in the scrotal sac. No definite varicocele. Right epididymal Doppler flow is normal. LEFT: Left testicle measures 4.70 x 2.30 x 3.47 cm, volume 19.6 mL. No focal testicular parenchymal lesions are visualized. Spectral Doppler analysis of the arterial and venous flow is normal in the left testis. Left epididymal head is normal in size. Trace physiologic volume of fluid in the scrotal sac. Small left varicocele. Left epididymal Doppler flow is increased. IMPRESSION: 1. Left epididymal Doppler flow is increased which can be seen in the setting of epididymitis.. 2. Small left varicocele. Assessment & Plan Assessment & Plan (1) Acute epididymitis: Code(s): N45.1 - Epididymitis (2) Right groin pain: Code(s): R10.31 - Right lower quadrant pain Plan In office urinalysis results reviewed with the patient today; as noted above. Discussed and stressed the importance of lifestyle modifications to assist with right-sided groin and scrotal pain patient has been experiencing. Start doxycycline as discussed and prescribed. Start Mobic as discussed and prescribed. Recent scrotal ultrasound results reviewed with the patient today; as noted above. Patient denies any bothersome urinary issues. Patient reports be happy with current voiding parameters. Reassurance provided Follow-up in 1 month; or sooner with any issues, concerns, and or questions. Orders: Orders AMB Urinalysis Automated 04/23/23 Z13.9 - Encounter for screening, unspecified Medications: New doxycycline hyclate 100 mg PO BID 14 days 28 tabs 0RF N39.0 - Urinary tract infection, site not specified, N45.1 - Epididymitis meloxicam 15 mg PO DAILY 30 days 30 tabs 0RF R10.31 - Right lower quadrant pain, R10.32 - Left lower quadrant pain Patient Instructions: The patient had an opportunity to ask questions regarding the treatment plan. All questions were answered. Physical exam, labs, and imaging were discussed and reviewed in detail. As well as risks, benefits, and discussion of treatment choices. No major barriers to understanding were identified. The patient expressed understanding and agreement with the above treatment plan. The patient was made aware they should contact our office by phone for worsening of their current condition, the appearance of new symptoms, or with any questions or concerns. Compliance is encouraged with any medications and follow up testing that is ordered. It is a privilege to be allowed the opportunity to participate in? your urological care.? Again, if you have any questions or concerns If you have any questions or concerns please do not hesitate to contact me. The office is [phone]. This note is constructed using voice recognition software. While every effort has been made to ensure accuracy labelling machine operator errors may have been included. Yours sincerely, GUTIERREZ Wright Coding Level of Care Code Est Pt Level 4 (96906) Diagnoses Acute epididymitis N45.1 Right groin pain R10.31
== END 2023-04-23 12:09 | disposition home or self-care (01) ==
PROVIDERS: PCP Internal Medicine; Visit Provider Nurse Practitioner Family
DX: N45.1 Epididymitis (principal); R10.31 Right lower quadrant pain
CPT/HCPCS: 99214

== ENCOUNTER → 2023-04-23 11:01 | Outpatient (BNVA) | payer OTHER, SELFPAY | PROVIDERS: PCP Internal Medicine; Visit Provider Nurse Practitioner Family | DX: N45.1 Epididymitis (principal); R10.31 Right lower quadrant pain | CPT/HCPCS: 81003 ==

== ENCOUNTER 2023-05-20 13:49 | Outpatient (AMB) | payer OTHER, SELFPAY ==
--- NOTE | 2023-05-20 13:52 | A.OFFVIS_ITS ---
Intake Intake Visit Reasons: 1m follow up Intake Note: Patient presents for office visit for Epididymitis Urology Medications: none Blood Thinner: none Trial Consultant Required: No Accompanied by: Self / Same As Patient Allergies Seasonal Allergies Allergy (Intermediate, Verified 05/20/23 15:13) Sneezing Medication List - Last Reconciled 05/20/23 by GUTIERREZ Wright doxycycline hyclate 100 mg PO BID 14 days fluticasone propionate 50 mcg/actuation 1 spray intranasal DAILY meloxicam 15 mg PO DAILY 30 days sertraline 25 mg PO DAILY HPI HPI Comments History of Present Illness Details Jaime is a very pleasant 42-year-old male patient of Dr. Villasenor. He presents to the office today for follow-up of his ongoing right-sided groin/scrotal/testicular discomfort he has been experiencing. Of note, patient was seen approximately 1 month ago at which time he was treated with 2 weeks of doxycycline and Mobic for epididymitis. In discussion with the patient today he reports significant improvement in right-sided groin pain and testicular discomfort he had been experiencing. He has since completed antibiotic therapy as prescribed. Prior to right-sided groin pain patient was to undergo vasectomy with Dr. Robles however this has been on hold. Discussed awaiting 2-3 months to ensure resolution of epididymitis prior to vasectomy. He otherwise denies any bothersome urinary issues or concerns. He denies urinary urgency, urinary frequency, incontinence, nocturia, hematuria, dysuria, foul smelling urine, eleonora nges to urinary stream, flank pain, fever, and or chills. He is happy with her current voiding parameters. In office urinalysis results reviewed with the patient today. He otherwise offers no other issues or concerns at this time. [facility] Medical History Right groin pain Upper back pain Tingling Snoring Insomnia Bilateral arm pain Anxiety about health Surgical History H/O left wrist surgery Family History Father Aortic aneurysm Mother S/P CABG x 1 Maternal Grandmother Lung cancer Maternal Grandfather Myocardial infarction Paternal Grandfather Stomach cancer Parkinson disease Paternal Uncle Parkinson disease Social History Housing: House Alcohol intake: current Patient Tobacco Use Status: Never used Tobacco e-Cigarette/Vaping Use: Never Used Second Hand Smoke Exposure: No Current occupational status: employed Cognitive needs: No Hearing needs: No Vision needs: No Review of Systems Const All systems reviewed & are unremarkable except as noted in HPI and below Physical Exam Const General: cooperative, healthy appearing, comfortable, no acute distress, well developed, alert and awake Nutritional Appearance: average body habitus Orientation/consciousness: patient oriented x3 Limitations: no limitations HEENT Head: Yes normal to inspection, Yes normocephalic and Yes atraumatic Ears: hearing grossly normal bilaterally Eyes General: appearance normal, both eyes and all related structures Neck Neck: Yes normal visual inspection and Yes trachea midline Chest Chest palpation & inspection: normal inspection of the chest Resp Effort & Inspection: normal respiratory effort and able to speak in complete sentences Cardio Rate: regular rate GI Inspection: Yes normal to inspection General: Yes no CVA tenderness Back/Spine/Pelvis Back: no CVA tenderness Skin General skin exam: no rashes or lesions noted Neuro General: patient oriented x3 Extrem General: Yes normal to inspection Psych Appearance: grossly normal and well kempt Mental Status: mental status grossly normal Speech and movement: Normal speech and movement present and Clear speech present Affect: normal affect Attitude: cooperative Thought process: Normal thought process present Thought content: Normal thought content present Insight: Good insight present (Psych) Judgement: Good judgement present (Psych) Results AMB Urinalysis, Automated UA Leukoctes 0 Aye/uL Last Edit by LEONID Herring on 05/20/23 14:02 UA Nitrite Negative Last Edit by LEONID Herring on 05/20/23 14:02 UA Urobilinogen 0.2 mg/dL Last Edit by LEONID Herring on 05/20/23 14:0 2 UA Protein 0 mg/dL Last Edit by Liban Chris A on 05/20/23 14:02 UA pH 6.0 Last Edit by Liban Chris A on 05/20/23 14:02 UA Blood 0 Francois/uL Last Edit by Liban Chris, RMA on 05/20/23 14:02 UA Specific [place] 1.025 Last Edit by Liban Chris A on 05/20/23 14: 02 UA Ketone Negative Last Edit by Liban Chris, RMA on 05/20/23 14:02 UA Bilirubin 0 mg/dL Last Edit by Liban Chris A on 05/20/23 14:02 UA Glucose 0 mg/dL Last Edit by Liban Chris A on 05/20/23 14:02 Results Reviewed Results Reviewed: Laboratory Last Values Urine pH (Auto) 6.0 05/20/23 14:01 Specific [place] (Auto) 1.025 05/20/23 14:01 Urine Protein (Auto) 0 mg/dL 05/20/23 14:01 Glucose (UA)(Auto) 0 mg/dL 05/20/23 14:01 Urine Ketones (Auto) Negative 05/20/23 14:01 Urine Blood (Auto) 0 Francois/uL 05/20/23 14:01 Urine Nitrite (Auto) Negative 05/20/23 14:01 Urine Bilirubin (Auto) 0 mg/dL 05/20/23 14:01 Urine Urobilinogen (Auto) 0.2 mg/dL 05/20/23 14:01 Leukocyte Esterase (Auto) 0 Aye/uL 05/20/23 14:01 Assessment & Plan Assessment & Plan (1) Acute epididymitis: Code(s): N45.1 - Epididymitis (2) Right groin pain: Code(s): R10.31 - Right lower quadrant pain Plan In office urinalysis results reviewed with the patient today; as noted above. Patient reports significant improvement in right-sided groin pain and scrotal pain he had been experiencing Discussed at length potential causes for epididymitis Continue Mobic as needed Patient denies any bothersome urinary issues. Patient reports be happy with current voiding parameters. Reassurance provided Discussed awaiting 2-3 months prior to scheduling vasectomy with Dr. Robles as planned to ensure for healing process. Patient will call to schedule vasectomy; or sooner with any issues, concerns, and or questions. Orders: Orders AMB Urinalysis Automated Today Z13.9 - Encounter for screening, unspecified Patient Instructions: The patient had an opportunity to ask questions regarding the treatment plan. All questions were answered. Physical exam, labs, and imaging were discussed and reviewed in detail. As well as risks, benefits, and discussion of treatment choices. No major barriers to understanding were identified. The patient expressed understanding and agreement with the above treatment plan. The patient was made aware they should contact our office by phone for worsening of their current condition, the appearance of new symptoms, or with any questions or concerns. Compliance is encouraged with any medications and follow up testing that is ordered. It is a privilege to be allowed the opportunity to participate in? your urological care.? Again, if you have any questions or concerns If you have any questions or concerns please do not hesitate to contact me. The office is [phone]. This note is constructed using voice recognition software. While every effort has been made to ensure accuracy hand gluer and slicer errors may have been included. Yours sincerely, GUTIERREZ Wright Coding Level of Care Code Est Pt Level 3 (40786) Diagnoses Acute epididymitis N45.1 Right groin pain R10.31
== END 2023-05-20 14:20 | disposition home or self-care (01) ==
PROVIDERS: PCP Internal Medicine; Visit Provider Nurse Practitioner Family
DX: N45.1 Epididymitis (principal); R10.31 Right lower quadrant pain; Z13.9 Encounter for screening, unspecified
CPT/HCPCS: 99213

== ENCOUNTER → 2023-05-20 13:49 | Outpatient (BNVA) | payer OTHER, SELFPAY | PROVIDERS: PCP Internal Medicine; Visit Provider Nurse Practitioner Family | DX: N45.1 Epididymitis (principal); R10.31 Right lower quadrant pain | CPT/HCPCS: 81003 ==

== ENCOUNTER 2023-07-11 12:31 | Outpatient (AMB) | payer OTHER, SELFPAY ==
[2023-07-11 12:33] VITALS: BP 120/80; PULSE 67; O2SAT 98; BMI 25.5
--- NOTE | 2023-07-11 12:33 | A.OFFPC_ITS ---
Vital Signs 07/11/23 12:33 Height 6 ft 1 in Weight 193 lb BMI 25.5 BP 120/80 Blood Pressure Location Lt brachial Position Sitting Pulse 67 Pulse Source Pulse Oximeter Pulse Oximetry (%) 98 Oxygen Delivery Method Room Air Intake Visit Reasons: Annual Exam Intake Note: Patient is here today for a physical. 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 Accompanied by: Self / Same As Patient Allergies Seasonal Allergies Allergy (Intermediate, Verified 07/11/23 12:37) Sneezing Medication List - Last Reconciled 07/11/23 by Erik Villasenor MD fluticasone propionate 50 mcg/actuation 1 spray intranasal DAILY PRN Tobacco use date assessed: 07/11/23 Dental Screening Dental Screen Date: 07/11/23 Did you have a dental visit in the last 12 months?: No Did you have a dental problem in the last 6 months where you did not have access to dental care?: No Was dental information given to patient?: Patient has dentist HPI Annual Exam HPI Details 43-year-old male with a history of gener alized anxiety disorder coming in for physical exam. Last seen in January having epididymitis and ultrasound was requested. And referral to Urology. Ongoing right-sided groin/s crotal/testicular discomfort has been treated with doxycycline and will be scheduling for vasectomy later. patient does havve a ff up wtih urology r groin still intermittent PFSH Medical History Right groin pain Upper back pain Tingling Snoring Insomnia Bilateral arm pain Anxiety about health Surgical History H/O left wrist surgery Family History Father Aortic aneurysm Mother S/P CABG x 1 Maternal Grandmother Lung cancer Maternal Grandfather Myocardial infarction Paternal Grandfather Stomach cancer Parkinson disease Paternal Uncle Parkinson disease Social History (Updated 07/11/23 @ 12:49 by Erik Villasenor MD) Housing: House Alcohol intake: current Comment: 4x a week 1 drink Patient Tobacco Use Status: Never used Tobacco e-Cigarette/Vaping Use: Never Used Second Hand Smoke Exposure: No Current occupational status: employed Cognitive needs: No Hearing needs: No Vision needs: No Questionnaire PHQ-9 Over the last 2 weeks, how often have you been bothered by any of the following problems? 1. Little interest or pleasure in doing things: not at all 2. Feeling down, depressed, or hopeless: not at all 3. Trouble falling or staying asleep, or sleeping too much: not at all 4. Feeling tired or having little energy: not at all 5. Poor appetite or overeating: not at all 6. Feeling bad about yourself - or that you are a failure or have let yourself or your family down: not at all 7. Trouble concentrating on things, such as reading the newspaper or watching television: not at all 8. Moving or speaking so slowly that other people could have noticed. Or the opposite - being so fidgety or restless that you have been moving around a lot more than usual: not at all 9. Thoughts that you would be better off or of hurting yourself in some way: not at all Total score: 0 Depression Screening Interpretation: Negative Depression Screening Done: Yes 79186 - PHQ-9 Billing: Yes Source: Developed by Drs. Chepe Haney, Mary Hong, Nader Chase and colleagues, with an educational cecilia from [employer]. Thrive Questionnaire Date Thrive assessed: 07/11/23 I am a: Patient What is your living situation today?: I have a steady place to live Within the past 12 months, did the food you bought not last and you didn't have the money to get more?: Never true Within the past 12 months, did you worry whether your food would run out before you got money to buy more?: Never true Do you have trouble paying for medicines?: No Do you have trouble getting transportation to medical appointments?: No Do you have trouble paying your heating and electricity bill?: No Do you have trouble taking care of your child, family member or friend?: No Do you have trouble with day-to-day activities such as bathing, preparing meals, shopping, managing finances, etc.?: No Are you currently unemployed and looking for a job?: No Are you interested in more education?: No Please select the resources that you would like help with: None Currently or been in a relationship where the following occur: no concerns reported THRIVE Score: 0 AUDIT C Alcohol Use Questionnaire (AUDIT-C) 1. How often do you have a drink containing alcohol?: Monthly or less 2. How many drinks containing alcohol do you have on a typical day when you are drinking?: 1 or 2 3. How often do you have six or more drinks on one occasion?: Never Total Score: 1 Score Reviewed/Action Taken: No ANNIA-7 AMB Questionnaire ANNIA-7 Date ANNIA - 7 assessed: 07/11/23 Feeling nervous, anxious, or on edge: 0 = Not at all Not being able to stop or control worryin = Not at all Worrying too much about different things: 0 = Not at all Trouble relaxin = Not at all Being so restless that it is hard to sit still: 0 = Not at all Becoming easily annoyed or irritable: 0 = Not at all Feeling afraid as if something awful might happen: 0 = Not at all Total ANNIA-7 score (0-4 normal; 5-9 mild; 10-14 moderate; 15-21 severe): 0 Source: Developed by Drs. Chepe Haney, Mary Hong, Nader Chase and colleagues, with an educational cecilia from [employer]. ANNIA-7 Assessment Billing ANNIA-7 Assessment Tool: ANNIA-7 Assessment 23410 Review of Systems Const Denies poor appetite and Denies weakness Eyes Denies no additional complaints ENT Reports Normal hearing present, Denies dizziness, Denies nasal congestion, Denies tinnitus and Denies sore throat Card Denies chest pain, Denies syncope, Denies rapid heart rate and Denies dyspnea Resp Denies cough and Denies dyspnea GI Denies change in stool character, Reports constipation, Denies diarrhea, Denies nausea and Denies vomiting Denies dysuria and Denies urinary frequency Neuro Reports Normal hearing present, Denies confusion, Denies dizziness, Denies syncope and Denies weakness Psych Denies confusion Physical exam (Primary Care) Vital Signs: Last Vital Signs Pulse 67 07/11/23 12:33 BP 120/80 07/11/23 12:33 Pulse Ox 98 07/11/23 12:33 Oxygen Delivery Method Room Air 07/11/23 12:33 BMI result Body Mass Index 25.5 Tobacco/Smoking Status: Tobacco use Status Tobacco use date assessed 07/11/23 07/11/23 12:39 Patient Tobacco Use Status Never used Tobacco 07/11/23 12:39 e-Cigarette/Vaping Use Never Used 07/11/23 12:39 PHQ-9: PHQ-9 Score PHQ-9: Total score 0 07/11/23 12:39 Depression Screening Interpretation: Negative Thrive Assessment: Date of Thrive Assessment Date Thrive assessed 07/11/23 07/11/23 12:39 Currently or been in a relationship where the following occur: no concerns reported Const General: alert and awake; No confusion Orientation/consciousness: No confusion HENMT Head: Yes normocephalic Ears: external ears normal and TM's normal bilaterally Face and sinus: Yes normal facial exam Mouth: moist mucous membranes Throat: Yes tonsils normal Eyes Conjunctivae: conjunctivae normal Pupils: Equal, round and reactive pupils present and Pupil accommodation reflex normal Direct Ophthalmoscopy: normal light reflex Neck Neck: No lymphadenopathy Thyroid: Thyroid normal Chest Chest palpation & inspection: normal inspection of the chest Resp Effort & Inspection: normal respiratory effort and no audible wheezes Auscultation: clear to auscultation bilaterally, no crackles, no wheezes and lung sounds not diminished Cardio Rate: regular rate Rhythm: regular rhythm Peripheral pulses: radial pulses present and dorsalis pedis present GI Palpation (GI): no masses Auscultation: normal bowel sounds and normoactive bowel sounds Rectal Exam - Male: Yes deferred Skin General skin exam: no rashes or lesions noted Rashes: no rashes Neuro General: deep tendon reflexes 2+ bilaterally and No confusion Cranial nerves: Yes Equal, round and reactive pupils present, Yes Midline tongue present, Yes Normal hearing present and Yes Ability to bilaterally elevate shoulders present Cognition (Neuro): normal cognition Gait exam (Neuro): Normal gait present Motor exam (neuro): 5/5 motor strength present throughout Deep tendon reflexes (DTR's): Right brachioradialis reflex intensity grade: 2+, Left brachioradialis reflex intensity grade: 2+, Right patellar reflex intensity grade: 2+ and Left patellar reflex intensity grade: 2+ Extrem General: No edema Assessment and Plan Assessment & Plan (1) Annual physical exam: Code(s): Z00.00 - Encounter for general adult medical examination without abnormal findings (2) Bilateral shoulder pain: Code(s): M25.511 - Pain in right shoulder; M25.512 - Pain in left shoulder (3) Acute epididymitis: Code(s): N45.1 - Epididymitis Plan: Patient has seen Urology and still having pain (4) Inguinal bulge: Code(s): R19.09 - Other intra-abdominal and pelvic swelling, mass and lump Plan: concern on inguinal hernia but this is not bad enough. will continue to monitor . if getting bigger will need to refer to the surgeon Medications: Changed From fluticasone propionate 50 mcg/actuation administer into each nostril 1 spray intranasal DAILY PRN To fluticasone propionate 50 mcg/actuation administer into each nostril 1 spray intranasal DAILY 16 grams 11RF Refilled fluticasone propionate 50 mcg/actuation administer into each nostril 1 spray intranasal DAILY 16 grams 11RF Coding Level of Care Code Est Pt Prev Care 40-64y(70818) Diagnoses Annual physical exam Z00.00 Bilateral shoulder pain M25.511; M25.512 Acute epididymitis N45.1 Inguinal bulge R19.09 Additional Codes ANNIA-7 Assessment Billing - ANNIA-7 Assessment Tool: ANNIA-7 Assessment 20261 ([id number])
== END 2023-07-11 13:07 | disposition home or self-care (01) ==
PROVIDERS: PCP Internal Medicine; Visit Provider Internal Medicine
DX: Z00.00 Encounter for general adult medical examination without abnormal findings (principal); M25.511 Pain in right shoulder; M25.512 Pain in left shoulder; N45.1 Epididymitis; R19.09 Other intra-abdominal and pelvic swelling, mass and lump
CPT/HCPCS: 99396

== ENCOUNTER 2023-08-06 09:31 | Outpatient (AMB) | payer OTHER, SELFPAY ==
--- NOTE | 2023-08-06 09:35 | A.OFFVIS_ITS ---
Intake Intake Visit Reasons: inguinal injection(vm to confirm) Intake Note: Patient presents today for a (inguinal injection) follow up Meds- None Allergies to Antibiotic- No Known Allergies Blood Thinner- None Patient states he has a mild pain and soreness in the right lower abdomen. 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 Villasenor. He presents to the office today for follow-up of his ongoing right-sided groin/scrotal/testicular discomfort he has been experiencing. Of note, patient was seen approximately 1 month ago at which time he was treated with 2 weeks of doxycycline and Mobic for epididymitis. In discussion with the patient today he reports significant improvement in right-sided groin pain and testicular discomfort he had been experiencing. He has since completed antibiotic therapy as prescribed. Prior to right-sided groin pain patient was to undergo vasectomy with Dr. Robles however this has been on hold. Discussed awaiting 2-3 months to ensure resolution of epididymitis prior to vasectomy. He otherwise denies any bothersome urinary issues or concerns. He denies urinary urgency, urinary frequency, incontinence, nocturia, hematuria, dysuria, foul smelling urine, changes to urinary stream, flank pain, fever, and or chills. He is happy with her current voiding parameters. In office urinalysis results reviewed with the patient today. He otherwise offers no other issues or concerns at this time. [facility] Medical History Right groin pain Upper back pain Tingling Snoring Insomnia Bilateral arm pain Anxiety about health Surgical History H/O left wrist surgery Family History Father Aortic aneurysm Mother S/P CABG x 1 Maternal Grandmother Lung cancer Maternal Grandfather Myocardial infarction Paternal Grandfather Stomach cancer Parkinson disease Paternal Uncle Parkinson disease Social History Housing: House Alcohol intake: current Comment: 4x a week 1 drink Patient Tobacco Use Status: Never used Tobacco e-Cigarette/Vaping Use: Never Used Second Hand Smoke Exposure: No Current occupational status: employed Cognitive needs: No Hearing needs: No Vision needs: No Review of Systems Const Denies chills and Denies fever(s) Card Reports no additional complaints and Denies syncope Resp Denies cough GI Denies abdominal pain and Denies heartburn Reports as per HPI and Denies change in libido Neuro Denies syncope Psych Denies change in libido Endo Denies change in libido Physical Exam Const General: cooperative, healthy appearing, comfortable and no acute distress Orientation/consciousness: patient oriented x3 HEENT Face and sinus: Yes normal facial exam Mouth: moist mucous membranes Neck Neck: Yes normal visual inspection, Yes full ROM and Yes trachea midline Chest Chest palpation & inspection: normal inspection of the chest Resp Effort & Inspection: normal respiratory effort, able to speak in complete sentences and no respiratory distress GI Inspection: Yes normal to inspection Back/Spine/Pelvis Cervical Spine: normal cervical lordosis Thoracic/Lumbar Spine: thoracic and lumbar spine normal to inspection Skin General skin exam: no rashes or lesions noted Neuro General: patient oriented x3, gait normal, tone normal and moves all extremities Extrem General: Yes normal to inspection and Yes capillary refill normal Assessment & Plan Assessment & Plan (1) Acute epididymitis: Code(s): N45.1 - Epididymitis Plan Reassurance provided Will call if issues Patient Instructions: Imaging studies, laboratory and physical exam results were discussed and reviewed in detail. No major barriers to patient understanding were identified. An opportunity to ask questions regarding the treatment plan was provided. All questions were answered. The patient expressed understanding and agreement with the above treatment plan. The patient is aware they should contact our office by phone for worsening of their current condition or the appearance of new urologic symptoms. Compliance is encouraged with any medications and followup testing that is ordered. It is a privilege to participate in the urologic care of your patient. If you have any questions or concerns regarding treatment for the above conditions, or other urologic issues, please do not hesitate to contact me. The office telephone contact is [phone]. This note is constructed using voice recognition software. While every effort has been made to ensure accuracy melt helper errors may have been included. Yours sincerely, Dr Kevin Robles MD, [facility] - Urology Providers of Expert, Compassionate Care for the Genitourinary System Coding Level of Care Code Est Pt Level 3 (44851) Diagnoses Acute epididymitis N45.1
== END 2023-08-06 10:19 | disposition home or self-care (01) ==
PROVIDERS: PCP Internal Medicine; Visit Provider Urology
DX: N45.1 Epididymitis (principal)
CPT/HCPCS: 99213

== ENCOUNTER → 2023-08-06 09:31 | Outpatient (BNVA) | payer OTHER, SELFPAY | PROVIDERS: PCP Internal Medicine; Visit Provider Urology ==

== ENCOUNTER 2023-08-14 10:43 | Outpatient (AMB) | payer OTHER, SELFPAY ==
--- NOTE | 2023-08-14 10:43 | A.OFFVIS_ITS ---
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 Villasenor. He is being follow-up on today via video telehealth for his ongoing right- sided groin/scrotal/testicular discomfort he has been experiencing. Of note, patient was seen approximately [address] Robles which time he underwent in office inguinal injection however he has had no improvement in right-sided scrotal/testicular discomfort. He reports feeling since having inguinal injection he has been experiencing umbilical like pain radiating to the right side of his flank. He denies any associated nausea or vomiting. He has previously been treated for epididymitis with 2 weeks of doxycycline aMobic and had improvement however symptoms have since returned. Patient continues with right-sided epididymal pain. Prior to right-sided groin pain patient was to undergo vasectomy with Dr. Robles however this has been on hold. He discusses feeling pain is interfering with activities of daily living. He reports it is more bothersome than painful. He describes pain as a dull ache. He otherwise denies any bothersome urinary issues or concerns. He denies urinary urgency, urinary frequency, incontinence, nocturia, hematuria, dysuria, foul smelling urine, changes to urinary stream, fever, and or chills. He is happy with her current voiding parameters. Discussed at length further treatment options with partial epididymectomy versus physical therapy versus surveillance monitoring. He otherwise offers no other issues or concerns at this time. [facility] Medical History Right groin pain Upper back pain Tingling Snoring Insomnia Bilateral arm pain Anxiety about health Surgical History H/O left wrist surgery Family History Father Aortic aneurysm Mother S/P CABG x 1 Maternal Grandmother Lung cancer Maternal Grandfather Myocardial infarction Paternal Grandfather Stomach cancer Parkinson disease Paternal Uncle Parkinson disease Social History Housing: House Alcohol intake: current Comment: 4x a week 1 drink Patient Tobacco Use Status: Never used Tobacco e-Cigarette/Vaping Use: Never Used Second Hand Smoke Exposure: No Current occupational status: employed Cognitive needs: No Hearing needs: No Vision needs: No Review of Systems Const All systems reviewed & are unremarkable except as noted in HPI and below Physical Exam Const General: cooperative, healthy appearing, comfortable, no acute distress, well developed, alert and awake Orientation/consciousness: patient oriented x3 Limitations: no limitations Resp Effort & Inspection: normal respiratory effort and able to speak in complete sentences Neuro General: patient oriented x3 Psych Appearance: grossly normal and well kempt Mental Status: mental status grossly normal Speech and movement: Normal speech and movement present and Clear speech present Affect: normal affect Attitude: cooperative Thought content: Normal thought content present Insight: Good insight present (Psych) Judgement: Good judgement present (Psych) Assessment & Plan Assessment & Plan (1) Flank pain: Code(s): R10.9 - Unspecified abdominal pain (2) Abdominal pain: Code(s): R10.9 - Unspecified abdominal pain (3) Acute epididymitis: Code(s): N45.1 - Epididymitis (4) Right groin pain: Code(s): R10.31 - Right lower quadrant pain Plan Discussed at length further treatment options of right-sided scrotal/testicle discomfort with surveillance monitoring verses physical therapy verses partial epididymectomy; risks and benefits of these interventions were discussed at length. Will obtain abdominal ultrasound for further assessment evaluation. Will obtain retroperitoneal ultrasound for further assessment evaluation. Discussed at length potential causes for discomfort patient is experiencing. Patient denies any bothersome urinary issues. Patient reports be happy with current voiding parameters. Reassurance provided Follow-up in 1 to 3 months with imaging to be completed prior; or sooner with any issues, concerns, and or questions. Orders: Orders US abdomen complete Today R10.9 - Unspecified abdominal pain US retroperitoneal comp Today R10.9 - Unspecified abdominal pain Patient Instructions: The patient had an opportunity to ask questions regarding the treatment plan. All questions were answered. Physical exam, labs, and imaging were discussed and reviewed in detail. As well as risks, benefits, and discussion of treatment choices. No major barriers to understanding were identified. The patient expressed understanding and agreement with the above treatment plan. The patient was made aware they should contact our office by phone for worsening of their current condition, the appearance of new symptoms, or with any questions or concerns. Compliance is encouraged with any medications and follow up testing that is ordered. It is a privilege to be allowed the opportunity to participate in? your urological care.? Again, if you have any questions or concerns If you have any questions or concerns please do not hesitate to contact me. The office is [phone]. This note is constructed using voice recognition software. While every effort has been made to ensure accuracy dietary tech errors may have been included. Yours sincerely, MOHAMUD Wright Telehealth Telehealth Location of provider rendering services: practice address Location of patient: address on file Patient Identification confirmed using: Name, : Yes Telehealth method: video Patient verbally consented to treatment: Yes Patient verbally consented to billing insurance company: Yes Patient informed of any privacy concerns related to visit: Yes Minutes spent on Phone/Video with Pt.: 28 Coding Level of Care Code Tele Est Pt Level 4 (33295) Diagnoses Flank pain R10.9 Abdominal pain R10.9 Acute epididymitis N45.1 Right groin pain R10.31 Time Spent (min) 35
== END 2023-08-14 11:39 | disposition home or self-care (01) ==
LOC: HO.HUSH 10:43
PROVIDERS: PCP Internal Medicine; Visit Provider Nurse Practitioner Family
DX: R10.9 Unspecified abdominal pain (principal); N45.1 Epididymitis; R10.31 Right lower quadrant pain
CPT/HCPCS: 99214

== ENCOUNTER → 2023-08-14 10:43 | Outpatient (BNVA) | payer OTHER, SELFPAY | PROVIDERS: PCP Internal Medicine; Visit Provider Nurse Practitioner Family ==

== ENCOUNTER 2023-08-26 10:01 | Outpatient (REF) | payer OTHER, SELFPAY ==
--- NOTE | ~2023-08-26 | US_ITS ---
EXAMINATION: US PELVIS LIMITED (BLADDER) CLINICAL INFORMATION: Unspecified abdominal pain. Flank pain. COMPARISON: None available. TECHNIQUE: Real-time imaging of the bladder. FINDINGS: BLADDER: Well distended and normal. Bilateral ureteral jets are demonstrated. Prevoid bladder volume is 147 mL. Postvoid bladder volume is 12.5 mL. Prostate is slightly lobulated with a volume of 17.2 mL. US/US bladder IMPRESSION: No definite bladder abnormality. Slightly lobulated but nonenlarged prostate.
--- NOTE | ~2023-08-26 | US_ITS ---
EXAMINATION: US ABDOMEN COMPLETE CLINICAL INFORMATION: Unspecified abdominal pain. COMPARISON: None available. TECHNIQUE: Real-time imaging of the abdominal viscera. FINDINGS: PANCREAS: Normal. ABDOMINAL AORTA: The proximal, mid, and distal segments are normal in caliber. INFERIOR VENA CAVA: Visualized portions are normal. LIVER: Normal. The liver is normal in size. The liver contour is normal. Parenchymal echogenicity is normal. No focal hepatic lesion. There is no intrahepatic biliary duct dilatation seen. GALLBLADDER: Normal. The gallbladder is physiologically distended without evidence of stones, sludge, polyps, wall thickening or pericholecystic fluid. No tenderness elicited during study. COMMON BILE DUCT: Normal in caliber measuring 0.6 cm in diameter. RIGHT KIDNEY: Normal. No hydronephrosis. No renal calculi or focal parenchymal lesions. The kidney measures 10.5 cm in maximum dimension. LEFT KIDNEY: Normal. No hydronephrosis. No renal calculi or focal parenchymal lesions. The kidney measures 11.3 cm in maximum dimension. SPLEEN: Normal. The spleen measures 13.3 cm in maximum dimension. FREE FLUID: None. US/US abdomen complete IMPRESSION: Unremarkable examination.
== END 2023-08-26 10:02 | disposition home or self-care (01) ==
LOC: HO.HMGCX 10:01
PROVIDERS: PCP Internal Medicine; Visit Provider Nurse Practitioner Family
DX: R10.9 Unspecified abdominal pain (principal)
CPT/HCPCS: 76700; 76857

== ENCOUNTER 2023-09-01 08:43 | Outpatient (AMB) | payer OTHER, SELFPAY ==
--- NOTE | 2023-09-01 08:43 | MHC.OFFVIS ---
Intake Intake Visit Reasons: follow up/US Intake Note: Patient presents today for tele visit to discuss surgical options and ultrasound results Urology Medications: none Allergies to Antibiotic: No Known Allergies Blood Thinner: None Tie Sawyer Required: No Accompanied by: Self / Same As Patient Allergies Seasonal Allergies Allergy (Intermediate, Verified 09/01/23 08:54) Sneezing Medication List - Last Reconciled 09/01/23 by GUTIERREZ Wright fluticasone propionate 50 mcg/actuation 1 spray intranasal DAILY HPI HPI Comments History of Present Illness Details Jaime is a very pleasant 43-year-old male patient of Dr. Villasenor. He is being follow-up on today via video telehealth for his ongoing right-sided groin/scrotal/testicular discomfort he has been experiencing. Of note, patient was seen approximately 2 weeks ago at which time a abdominal ultrasound and bladder ultrasound were ordered for further assessment evaluation. These results were reviewed with the patient today. Unremarkable abdominal ultrasound. No definite bladder abnormality. Slightly lobulated but nonenlarged prostate. Of note, patient underwent in office inguinal injection with Dr. Robles 08/06/23 however has had no improvement in right-sided scrotal/testicular discomfort he has been experiencing. He denies any associated nausea or vomiting. He has previously been treated for epididymitis with 2 weeks of doxycycline and Mobic and had improvement however symptoms have since returned. Patient continues with right-sided epididymal pain. Prior to right-sided groin pain patient was to undergo vasectomy with Dr. Robles however this has been on hold since. He discusses feeling pain is interfering with activities of daily living. He reports it is more bothersome than painful. He describes pain as a dull constant ache. He otherwise denies any bothersome urinary issues or concerns. He denies urinary urgency, urinary frequency, incontinence, nocturia, hematuria, dysuria, foul smelling urine, changes to urinary stream, fever, and or chills. He is happy with her current voiding parameters. Discussed at length further treatment options with partial epididymectomy versus physical therapy versus surveillance monitoring. Discussed risks and benefits of these interventions at length. He otherwise offers no other issues or concerns at this time. [facility] Medical History Right groin pain Upper back pain Tingling Snoring Insomnia Bilateral arm pain Anxiety about health Surgical History H/O left wrist surgery Family History Father Aortic aneurysm Mother S/P CABG x 1 Maternal Grandmother Lung cancer Maternal Grandfather Myocardial infarction Paternal Grandfather Stomach cancer Parkinson disease Paternal Uncle Parkinson disease Social History Housing: House Alcohol intake: current Comment: 4x a week 1 drink Patient Tobacco Use Status: Never used Tobacco e-Cigarette/Vaping Use: Never Used Second Hand Smoke Exposure: No Current occupational status: employed Cognitive needs: No Hearing needs: No Vision needs: No Review of Systems Const All systems reviewed & are unremarkable except as noted in HPI and below Physical Exam Const General: cooperative, healthy appearing, comfortable, no acute distress, well developed, alert and awake Orientation/consciousness: patient oriented x3 Limitations: no limitations Resp Effort & Inspection: normal respiratory effort and able to speak in complete sentences Neuro General: patient oriented x3 Psych Appearance: grossly normal and well kempt Mental Status: mental status grossly normal Speech and movement: Normal speech and movement present and Clear speech present Affect: normal affect Attitude: cooperative Thought content: Normal thought content present Insight: Good insight present (Psych) Judgement: Good judgement present (Psych) Results Reviewed Results Reviewed: Date of Service: 08/26/23 EXAMINATION: US ABDOMEN COMPLETE FINDINGS: PANCREAS: Normal. ABDOMINAL AORTA: The proximal, mid, and distal segments are normal in caliber. INFERIOR VENA CAVA: Visualized portions are normal. LIVER: Normal. The liver is normal in size. The liver contour is normal. Parenchymal echogenicity is normal. No focal hepatic lesion. There is no intrahepatic biliary duct dilatation seen. GALLBLADDER: Normal. The gallbladder is physiologically distended without evidence of stones, sludge, polyps, wall thickening or pericholecystic fluid. No tenderness elicited during study. COMMON BILE DUCT: Normal in caliber measuring 0.6 cm in diameter. RIGHT KIDNEY: Normal. No hydronephrosis. No renal calculi or focal parenchymal lesions. The kidney measures 10.5 cm in maximum dimension. LEFT KIDNEY: Normal. No hydronephrosis. No renal calculi or focal parenchymal lesions. The kidney measures 11.3 cm in maximum dimension. SPLEEN: Normal. The spleen measures 13.3 cm in maximum dimension. FREE FLUID: None. IMPRESSION: Unremarkable examination. Date of Service: 08/26/23 EXAMINATION: US PELVIS LIMITED (BLADDER) FINDINGS: BLADDER: Well distended and normal. Bilateral ureteral jets are demonstrated. Prevoid bladder volume is 147 mL. Postvoid bladder volume is 12.5 mL. Prostate is slightly lobulated with a volume of 17.2 mL. IMPRESSION: No definite bladder abnormality. Slightly lobulated but nonenlarged prostate. Assessment & Plan Assessment & Plan (1) Flank pain: Code(s): R10.9 - Unspecified abdominal pain (2) Abdominal pain: Code(s): R10.9 - Unspecified abdominal pain (3) Acute epididymitis: Code(s): N45.1 - Epididymitis (4) Right groin pain: Code(s): R10.31 - Right lower quadrant pain Plan: Risks, benefits and alternatives to therapy were discussed. These include but are not limited to infection, bleeding, damage to local organs and tissues, need for further interventions. ? Anesthetic risks regarding cardiac arrhythmia, blood clots, and potential mortality were discussed. The patient understands the typical recovery time and the outpatient nature of the procedure. After consideration of these risks the patient gives full informed consent and they wish to move ahead with the procedure. Plan Recent abdominal ultrasound and bladder ultrasound results reviewed with the patient today; as noted above. Discussed at length further treatment options of right-sided scrotal/testicle discomfort with surveillance monitoring verses physical therapy verses partial epididymectomy; risks and benefits of these interventions were discussed at length. Discussed at length potential causes for discomfort patient is experiencing. Patient denies any bothersome urinary issues. Patient reports be happy with current voiding parameters. Reassurance provided. Will schedule for partial epididymectomy and vasectomy as discussed Follow-up per doctor's orders or sooner with any issues, concerns, and or questions. Patient Instructions: The patient had an opportunity to ask questions regarding the treatment plan. All questions were answered. Physical exam, labs, and imaging were discussed and reviewed in detail. As well as risks, benefits, and discussion of treatment choices. No major barriers to understanding were identified. The patient expressed understanding and agreement with the above treatment plan. The patient was made aware they should contact our office by phone for worsening of their current condition, the appearance of new symptoms, or with any questions or concerns. Compliance is encouraged with any medications and follow up testing that is ordered. It is a privilege to be allowed the opportunity to participate in? your urological care.? Again, if you have any questions or concerns If you have any questions or concerns please do not hesitate to contact me. The office is [phone]. This note is constructed using voice recognition software. While every effort has been made to ensure accuracy link trainer maintenance worker errors may have been included. Yours sincerely, GUTIERREZ Wright Telehealth Telehealth Location of provider rendering services: practice address Location of patient: address on file Patient Identification confirmed using: Name, : Yes Telehealth method: video Patient verbally consented to treatment: Yes Patient verbally consented to billing insurance company: Yes Patient informed of any privacy concerns related to visit: Yes Minutes spent on Phone/Video with Pt.: 25 Coding Level of Care Code Tele Est Pt Level 4 (71905) Diagnoses Flank pain R10.9 Abdominal pain R10.9 Acute epididymitis N45.1 Right groin pain R10.31
== END 2023-09-01 09:14 | disposition home or self-care (01) ==
LOC: HO.HUSH 08:43
PROVIDERS: PCP Internal Medicine; Visit Provider Nurse Practitioner Family
DX: R10.9 Unspecified abdominal pain (principal); N45.1 Epididymitis; R10.31 Right lower quadrant pain
CPT/HCPCS: 99214

== ENCOUNTER → 2023-09-01 08:43 | Outpatient (BNVA) | payer OTHER, SELFPAY | PROVIDERS: PCP Internal Medicine; Visit Provider Nurse Practitioner Family ==

== ENCOUNTER 2023-11-10 13:05 | Day surgery (SDC) | payer OTHER, SELFPAY ==
[2023-11-06 11:48] VITALS: BMI 25.5
--- NOTE | 2023-11-06 15:12 | HO.ANESPROP2 ---
Documented by User: Diamante Atwood NP 11/06/23 15:12 HPI - Anesthesia Eval Consult details Narrative: 43yo M for Right Partial Epididymectomy, Vasectomy PMFSH Active Problems Active Problems: All Active Problems Abdominal pain (Acute) Flank pain (Acute) Inguinal bulge (Acute) Acute epididymitis (Acute) Right groin pain (Acute) Anxiety about health (Acute) Serum calcium elevated (Acute) Upper back pain (Acute) Tingling (Acute) Snoring (Acute) Insomnia (Acute) Abdominal bloating (Acute) Bilateral shoulder pain (Acute) Numbness and tingling of both legs (Acute) Numbness and tingling of right arm (Acute) Numbness and tingling in left arm (Acute) Generalized anxiety disorder (Acute) Dizziness (Acute) Shoulder tendinitis (Acute) Hyperkalemia (Acute) Vitamin B 12 deficiency (Acute) Annual physical exam (Acute) COVID-19 virus infection (Acute) Strain of left pectoralis muscle (Acute) Pain of left sacroiliac joint (Acute) Vasectomy evaluation (Acute) Past Medical History Medical History Right groin pain Upper back pain Tingling Snoring Insomnia Bilateral arm pain Anxiety about health Family History Family History Father Aortic aneurysm Mother S/P CABG x 1 Maternal Grandmother Lung cancer Maternal Grandfather Myocardial infarction Paternal Grandfather Stomach cancer Parkinson disease Paternal Uncle Parkinson disease Surgical History Surgical History H/O left wrist surgery Social History Social History Housing: House Alcohol intake: current Comment: 4x a week 1 drink Patient Tobacco Use Status: Never used Tobacco e-Cigarette/Vaping Use: Never Used Second Hand Smoke Exposure: No Use of substances other than those prescribed or required for medical reasons: No Are you DNR?: No Advance Directives: No Advance Directives Information Provided: Yes Current occupational status: employed Cognitive needs: No Hearing needs: No Vision needs: No Meds Allergies Allergy/AdvReac Type Severity Reaction Status Date / Time Seasonal Allergies Allergy Intermediate Sneezing Verified 11/10/23 13:31 Exam Height,Weight and Vital Signs: Height 6 ft 1 in Weight 87.543 kg Assessment and Plan Assessment Anesthesia Assessment: Chart Reviewed Documented by User: Oxana Florez MD 11/10/23 14:57 PMFSH Past Medical History Medical History Right groin pain Upper back pain Tingling Snoring Insomnia Bilateral arm pain Anxiety about health Family History Family History Father Aortic aneurysm Mother S/P CABG x 1 Maternal Grandmother Lung cancer Maternal Grandfather Myocardial infarction Paternal Grandfather Stomach cancer Parkinson disease Paternal Uncle Parkinson disease Family history of problems with anesthesia: No Surgical History Surgical History H/O left wrist surgery History of Problems with Anesthesia: No Social History Social History Housing: House Alcohol intake: current Comment: 4x a week 1 drink Patient Tobacco Use Status: Never used Tobacco e-Cigarette/Vaping Use: Never Used Second Hand Smoke Exposure: No Use of substances other than those prescribed or required for medical reasons: No Are you DNR?: No Advance Directives: No Advance Directives Information Provided: Yes Current occupational status: employed Cognitive needs: No Hearing needs: No Vision needs: No Meds Allergies Allergy/AdvReac Type Severity Reaction Status Date / Time Seasonal Allergies Allergy Intermediate Sneezing Verified 11/10/23 13:31 Exam Airway Mallampati Class: II TM Dist: >3cm Neck ROM: Full Heart: rrr Lungs: cta Assessment and Plan Assessment Anesthesia Assessment: Anesthesia Plan Discussed Final Anesthetic Review Family History of Problems with Anesthesia: No History of Problems with Anesthesia: No NPO: Yes ASA Class: II Final Preanesthetic Review: No Changes in Pt Med Stat, Meds/Allgs Chart Reviewed, Consent Obtained/Reviewed and Anes Risks/Benef Reviewed Patient Risk: Low Procedure Risk: Low Anesthetic Plan Anesthetic Plan: GA Disposition: Standard PACU
[2023-11-10] VITALS (7 sets, daily range): BP systolic 113–122; BP diastolic 65–87; PULSE 56–73; RESP 16–17; TEMP 36.6–37; O2SAT 97–99; BMI 24.5
--- NOTE | 2023-11-10 15:06 | P.HPSUR_ITS ---
Pre-Procedural Eval Section A - 24 Hr Update-Section A only Date of Service: 11/10/23 The patient is an INPATIENT: No Changes since office visit: No Cold of Flu in the past 2 weeks, No New Medical Problems, No Changes in Medication and No Patient answered all questions The patient has been examined within 24 hours of the surgical procedure. The History & Physical has been completed within 30 days and I have reviewed it.: Yes Section B - Complete if H&P > 30 days Chief Complaint: Epididymitis Details of Present Illness: right partial epididymitis and vasectomy Allergies: Allergies Allergy/AdvReac Type Severity Reaction Status Date / Time Seasonal Allergies Allergy Intermediate Sneezing Verified 11/10/23 13:31 Review of Systems Sugical H&P ROS: Negative: Constitution, Cardiovascular, Respiratory, Neurological, Psychiatric, Hem-Onc, Allergic/Immunologic, Gastrointestinal, Gen itourinary, Musculoskeletal, Integumentary, Endocrine and Eyes/Ears/Nose/Throat Exam Surgical H&P Exam: Normal: HEENT, Normal: Heart, Normal: Lungs, Normal: Extremities, Normal: Abdomen, Normal: Skin and Normal: Neurological Plan Diagnosis/Plan: Unchanged (Right partial epididymectomy with vasectomy) I have reviewed the history and physical and performed a pertinent physical examination on my patient. No changes have occurred unless specified. Time Spent With Patient Time: Total time managing care of this patient today ____ minutes.
--- NOTE | 2023-11-10 15:56 | P.OP_ITS ---
Operative Note Operative Note Date of Service: 11/10/23 Narrative: PreOperative Diagnosis: Right epididymal pain, anxiety about health - children Post Operative Diagnosis: Right epididymal pain, anxiety about health Procedure: 1) right partial epididymectomy 2) bilateral vasectomy Surgeon: Dr Kevin Robles Anesthesia: Sedation Indications for procedure: Orchalgia from inflamed right head of epididymis. Anxiety about health regarding risk of . Procedure: After informed consent was verified the patient was brought to the operating r oom and placed in a supine position. Anesthesia was administered per protocol. The patient was prepped and draped in a sterile fashion. Safety pause time-out was performed. Antibiotics being given. The right testicle was elevated. Local anesthetic was infiltrated in equatorial fashion on the right side. A small 3 cm incision was then made in developed down to the tunica. Tunica was elevated and incised. The testicle was delivered. The head of the epididymis was pale and showed reduced blood flow compared to the rest of the epididymis. Using a combination of cautery and sharp dissection the head of the epididymis was mobilized. A snap was able to be passed proximally 1 cm rear back of the head of the epididymis and a suture was placed in order to tie the feeding vessel. Suture was tightened and the head of the epididymis was then released from the testicle. Using cautery the head of the epididymis was divided from the main body of the epididymis. Cautery was used to control ooze. The testicle was placed back into the scrotal sac. Tunica was closed with a running 2-0 Vicryl. Skin was closed with 3-0 interrupted chromic sutures. The left vas was elevated using a 3 finger grasping technique. 1% lidocaine was used to create a subdermal bubble. Further anesthetic was then advanced using the 25-gauge needle along the vasa in a proximal fashion. Approximately 2 minut es were allowed to for local anesthetic uptake. Using the sharp spreading instrument the scrotal skin was spread longitudinally in line with the vasa until the subdermal layer had been divided. The vasa was then elevated from the scrotum using a ring clamp. Care was taken to elevate the superior portion of the vasa by rotating the ring clamp in a caudad direction. The battery powered cautery was used to divide the vasal sheath in a longitudinal direction on the exposed vasa and to strip the vasal sheath from the vasa. A 2nd narrower ring clamp was placed on the exposed vas and used to lift the vas from the vasal sheath. so it grasped the elevated vas. The cautery was used to divide vasal attachments and allow full exposure of a small loop of vasa. The sharp spreading instrument was then used to create a tunnel under the vasa and spread to allow the blood vessels of the vasa to retract from the vasa. A mosquito clamp was placed on the proximal portion of the vas. The battery- powered cautery was used to make a partial division in the proximal vas and then inserted in order to cauterize the proximal end of the vas. This was then cut and allowed to retract into the vasal sheath. The mosquito was then used to twist the vasa 180 degrees creating a fascial interposition. Using a 4-0 chromic suture the fascial interposition was sutured closed. The distal portion of the vas was then cut in order to obtain a segment of vasa. The vasa were allowed to retract back into the scrotum. A small snap was then used to approximate the skin edges and allow hemostasis without placement of a suture. A similar procedure was repeated on the right side. He tolerated the procedure well. CPT 78586 - vasectomy Pathology: Epididymal head, bilateral vasa Drains: []
== END 2023-11-10 17:18 | disposition home or self-care (01) ==
PROVIDERS: PCP Internal Medicine; Visit Provider Urology
PROC: (CPT 54860; principal; 2023-11-10 14:50)
PROC: (CPT 55250; 2023-11-10 14:50)
DX: Z30.2 Encounter for sterilization (principal); N45.1 Epididymitis; F41.8 Other specified anxiety disorders
CPT/HCPCS: 54860; 55250; 88302; 88304; J0131; J0690; J1100; J2250; J2405; J2704; J2795; J3010

== ENCOUNTER → 2023-11-10 13:05 | Outpatient (BNV) | payer OTHER, SELFPAY | PROVIDERS: PCP Internal Medicine; Visit Provider Urology | DX: N45.1 Epididymitis (principal); Z30.2 Encounter for sterilization | CPT/HCPCS: 54860; 55250 ==

== ENCOUNTER 2024-02-10 15:29 | Outpatient (AMB) | payer OTHER, SELFPAY ==
--- NOTE | 2024-02-10 15:39 | A.OFFVIS_ITS ---
Intake Visit Reasons: Vasectomy/Epidymectomy- follow up Intake Note: Patient is present for Vasectomy/Epidymectomy Follow up Geomatics Professor Required: No Accompanied by: Self / Same As Patient Allergies Seasonal Allergies Allergy (Intermediate, Verified 11/10/23 13:31) Sneezing HPI Comments Details: Jaime is a pleasant male. He is seen for the following urologic conditions - anxiety about health - vasectomy consultation Post partial epididymectomy for pain Has resolved Will bring semen sample to confirm sperm absence Vasectomy evaluation The patient presents for vasectomy consultation. He is currently He has fathered multiple children with single partner The youngest child is greater than 1-year-old His partner is aware and permissive for vasectomy. Current form of control is hormonal The vasectomy may be complicated due to a history of no complicating issues, inguinal hernia repair, orchidopexy, history of orchitis, orchiectomy. Patient education has been provided via AUA video, via printed information, risks of failure, recovery time, bruising and potential pain syndrome have been stressed [facility] Medical History Right groin pain Upper back pain Tingling Snoring Insomnia Bilateral arm pain Anxiety about health Surgical History H/O left wrist surgery Family History Father Aortic aneurysm Mother S/P CABG x 1 Maternal Grandmother Lung cancer Maternal Grandfather Myocardial infarction Paternal Grandfather Stomach cancer Parkinson disease Paternal Uncle Parkinson disease Social History Housing: House Alcohol intake: current Comment: 4x a week 1 drink Patient Tobacco Use Status: Never used Tobacco e-Cigarette/Vaping Use: Never Used Second Hand Smoke Exposure: No Current occupational status: employed Cognitive needs: No Hearing needs: No Vision needs: No Review of Systems Const Denies chills and Denies fever(s) Card Reports no additional complaints and Denies syncope Resp Denies cough GI Denies abdominal pain and Denies heartburn Reports as per HPI and Denies change in libido Neuro Denies syncope Psych Denies change in libido Endo Denies change in libido Physical Exam Const General: cooperative, healthy appearing, comfortable and no acute distress Orientation/consciousness: patient oriented x3 HEENT Face and sinus: Yes normal facial exam Mouth: moist mucous membranes Neck Neck: Yes normal visual inspection, Yes full ROM and Yes trachea midline Chest Chest palpation & inspection: normal inspection of the chest Resp Effort & Inspection: normal respiratory effort, able to speak in complete sentences and no respiratory distress GI Inspection: Yes normal to inspection Back/Spine/Pelvis Cervical Spine: normal cervical lordosis Thoracic/Lumbar Spine: thoracic and lumbar spine normal to inspection Skin General skin exam: no rashes or lesions noted Neuro General: patient oriented x3, gait normal, tone normal and moves all extremities Extrem General: Yes normal to inspection and Yes capillary refill normal Assessment & Plan Assessment & Plan (1) Epididymal pain: Code(s): N50.819 - Testicular pain, unspecified Category: Medical Plan resolved pain Patient Instructions: Imaging studies, laboratory and physical exam results were discussed and reviewed in detail. No major barriers to patient understanding were identified. An opportunity to ask questions regarding the treatment plan was provided. All questions were answered. The patient expressed understanding and agreement with the above treatment plan. The patient is aware they should contact our office by phone for worsening of their current condition or the appearance of new urologic symptoms. Compliance is encouraged with any medications and followup testing that is ordered. It is a privilege to participate in the urologic care of your patient. If you have any questions or concerns regarding treatment for the above conditions, or other urologic issues, please do not hesitate to contact me. The office telep michael contact is [phone]. This note is constructed using voice recognition software. While every effort has been made to ensure accuracy information security analyst errors may have been included. Yours sincerely, Dr Kevin Robles MD, [facility] Providers of Expert, Compassionate Care for the Genitourinary System Coding Level of Care Code Est Pt Level 3 (81175) Diagnoses Epididymal pain N50.819
== END 2024-02-10 16:13 | disposition home or self-care (01) ==
PROVIDERS: PCP Internal Medicine; Visit Provider Urology
DX: N50.819 Testicular pain, unspecified (principal)
CPT/HCPCS: 99213

== ENCOUNTER → 2024-02-10 15:29 | Outpatient (BNVA) | payer OTHER, SELFPAY | PROVIDERS: PCP Internal Medicine; Visit Provider Urology ==

== ENCOUNTER 2024-03-22 08:39 | Outpatient (AMB) | payer OTHER, SELFPAY ==
[2024-03-22 08:43] VITALS: BP 120/80; PULSE 59; TEMP 36.6; O2SAT 98
--- NOTE | 2024-03-22 08:43 | AM.OFFWIN_ITS ---
Intake Vital Signs 03/22/24 08:43 Weight 189 lb BP 120/80 Blood Pressure Location Lt brachial Position Sitting Pulse 59 Pulse Source Pulse Oximeter Temp 97.8 F Temp Source Oral Pulse Oximetry (%) 98 Oxygen Delivery Method Room Air Intake Visit Reasons: EP Cough Intake Note: Patient here for cough that has been present for about 2 weeks, states he is now having nasal congestion. Patient Tobacco Use Status: Never used Tobacco Allergies Seasonal Allergies Allergy (Intermediate, Verified 03/22/24 08:49) Sneezing Do you need a note to return to daycare/school/sports/work: Yes HPI HPI Comments 2 History of Present Illness Details Patient is a 43-year-old male complaining of over 2 weeks of a cough she says it is productive with green sputum. He states that this morning when he woke up he started having sinus pain and head pressure. He denies any shortness of breath, fevers, ear pain, headaches. He says he has been using essential oils but no other [id number] medications to treat his symptoms. He tells me his son was sick a week or so ago with a cough but has since recovered with no antibiotics. He also tells me he did not test at home for COVID. 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 He denies any history of asthma or COPD [facility] Medical History Right groin pain Upper back pain Tingling Snoring Insomnia Bilateral arm pain Anxiety about health Surgical History H/O left wrist surgery Family History Father Aortic aneurysm Mother S/P CABG x 1 Maternal Grandmother Lung cancer Maternal Grandfather Myocardial infarction Paternal Grandfather Stomach cancer Parkinson disease Paternal Uncle Parkinson disease Social History Housing: House Alcohol intake: current Comment: 4x a week 1 drink Patient Tobacco Use Status: Never used Tobacco e-Cigarette/Vaping Use: Never Used Second Hand Smoke Exposure: No Current occupational status: employed Cognitive needs: No Hearing needs: No Vision needs: No Review of Systems Const All systems reviewed & are unremarkable except as noted in HPI and below Physical Exam Vital Signs: Last Vital Signs Temp 97.8 F 03/22/24 08:43 Pulse 59 03/22/24 08:43 BP 120/80 03/22/24 08:43 Pulse Ox 98 03/22/24 08:43 Oxygen Delivery Method Room Air 03/22/24 08:43 Const General: cooperative, healthy appearing, comfortable and no acute distress Orientation/consciousness: patient oriented x3 Limitations: no limitations HEENT Head: Yes normal to inspection Ears: hearing grossly normal bilaterally, external ears normal and TM's normal bilaterally General nose exam: Normal external nose present, Normal nares present and No nasal discharge present Face and sinus: Yes normal facial exam and Yes sinuses nontender Mouth: Normal oral and palatal mucosa present and moist mucous membranes Throat: Yes tonsils normal, Yes uvula midline and Yes posterior oropharynx abnormal (Erythema) Eyes General: appearance normal, both eyes and all related structures Neck Neck: Yes normal visual inspection Resp Effort & Inspection: normal respiratory effort, able to speak in complete sentences, no respiratory distress, not tachypneic, no tripod positioning and no use of accessory muscles Auscultation: clear to auscultation bilaterally Cardio Rate: regular rate Rhythm: regular rhythm Heart sounds: normal S1 and S2 Skin General skin exam: no rashes or lesions noted Neuro General: patient oriented x3 Extrem General: Yes normal to inspection and Yes no clubbing, cyanosis or edema Assessment & Plan Assessment & Plan (1) URI (upper respiratory infection): Code(s): J06.9 - Acute upper respiratory infection, unspecified Qualifiers: URI type: unspecified URI Qualified Code(s): J06.9 - Acute upper respiratory infection, unspecified Plan: Vital signs stable patient well-appearing and lung sounds are clear. Explained this is likely viral and we did do a respiratory pathogen panel. If it comes up negative, will likely send Augmentin for sinusitis Plan see above Orders: Orders Resp Pathogen Panel - [facility] Today J06.9 - Acute upper respiratory infection, unspecified Coding Level of Care Code Est Pt Level 3 (83344) Diagnoses Upper respiratory tract infection, unspecified type J06.9 URI type: unspecified URI
== END 2024-03-22 09:05 | disposition home or self-care (01) ==
PROVIDERS: PCP Internal Medicine; Visit Provider Physician Assistant
DX: J06.9 Acute upper respiratory infection, unspecified (principal)

== ENCOUNTER 2024-03-22 08:39 | Outpatient (REF) | payer OTHER, SELFPAY ==
[2024-03-22 15:37] LABS: Adenovirus PCR Not Detected (Not Detect.); Bordetella parapertussis PCR Not Detected (Not Detect.); Bordetella pertussis PCR Not Detected (Not Detect.); Chlamydia pneumoniae PCR Not Detected (Not Detect.); Coronavirus 229E PCR Not Detected (Not Detect.); Coronavirus HKU1 PCR Not Detected (Not Detect.); Coronavirus NL63 PCR Not Detected (Not Detect.); Coronavirus OC43 PCR Not Detected (Not Detect.); Human metapneumovirus PCR Not Detected (Not Detect.); Influenza A PCR Not Detected (Not Detect.); Influenza B PCR Not Detected (Not Detect.); Mycoplasma pneumoniae PCR Not Detected (Not Detect.); Parainfluenza 1 PCR Not Detected (Not Detect.); Parainfluenza 2 PCR Not Detected (Not Detect.); Parainfluenza 3 PCR Not Detected (Not Detect.); Parainfluenza 4 PCR Not Detected (Not Detect.); RSV PCR Not Detected (Not Detect.); Rhino/Enterovirus PCR Detected (Not Detect.)
[2024-03-22 17:15] LABS: SARS-CoV-2 PCR Not Detected (Not Detect.)
== END 2024-03-22 08:40 | disposition home or self-care (01) ==
LOC: HO.LAB 08:39
PROVIDERS: PCP Internal Medicine; Visit Provider Physician Assistant
DX: J06.9 Acute upper respiratory infection, unspecified (principal)
CPT/HCPCS: 87633

== ENCOUNTER 2024-04-27 15:30 | Outpatient (AMB) | payer OTHER, SELFPAY ==
--- NOTE | 2024-04-27 15:40 | A.OFFVIS_ITS ---
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 He is seen for the following urologic conditions - anxiety about health - vasectomy consultation Telemedicine Evaluation 15 min Consultation [employer] Video High-power semen analysis No sperm seen Vasectomy procedure The patient presents for vasectomy procedure. He is currently He has fathered multiple children with single partner The youngest child is greater than 1-year-old His partner is aware and permissive for vasectomy. Current form of control is hormonal [facility] Medical History Right groin pain Upper back pain Tingling Snoring Insomnia Bilateral arm pain Anxiety about health Surgical History H/O left wrist surgery Family History Father Aortic aneurysm Mother S/P CABG x 1 Maternal Grandmother Lung cancer Maternal Grandfather Myocardial infarction Paternal Grandfather Stomach cancer Parkinson disease Paternal Uncle Parkinson disease Social History Housing: House Alcohol intake: current Comment: 4x a week 1 drink Patient Tobacco Use Status: Never used Tobacco e-Cigarette/Vaping Use: Never Used Second Hand Smoke Exposure: No Current occupational status: employed Cognitive needs: No Hearing needs: No Vision needs: No Review of Systems Const All systems reviewed & are unremarkable except as noted in HPI and below Reports no additional complaints Resp Reports no additional complaints GI Reports no additional complaints Reports as per HPI Musc Reports no additional complaints Physical Exam Telemedicine evaluation Appropriate responses Regular breathing rate and rhythm HEENT Head: Yes normal to inspection Ears: hearing grossly normal bilaterally Eyes General: appearance normal, both eyes and all related structures Neck Neck: Yes normal visual inspection Chest Chest palpation & inspection: normal inspection of the chest Resp Effort & Inspection: normal respiratory effort and able to speak in complete sentences Telehealth Telehealth Telehealth Platform: [place] Location of provider rendering services: practice address Location of patient: address on file Patient Identification confirmed using: Name, : Yes Telehealth method: video Patient verbally consented to treatment: Yes Patient verbally consented to billing insurance company: Yes Patient informed of any privacy concerns related to visit: Yes Minutes spent on Phone/Video with Pt.: 15 Assessment & Plan Assessment & Plan (1) Vasectomy evaluation: Code(s): Z - Encounter for other general counseling and advice on contraception Category: Medical Plan P.r.n. Patient Instructions: Imaging studies, laboratory and physical exam results were discussed and reviewed in detail. No major barriers to patient understanding were identified. An opportunity to ask questions regarding the treatment plan was provided. All questions were answered. The patient expressed understanding and agreement with the above treatment plan. The patient is aware they should contact our office by phone for worsening of their current condition or the appearance of new urologic symptoms. Compliance is encouraged with any medications and followup testing that is ordered. It is a privilege to participate in the urologic care of your patient. If you have any questions or concerns regarding treatment for the above conditions, or other urologic issues, please do not hesitate to contact me. The office telephone contact is [phone]. This note is constructed using voice recognition software. While every effort has been made to ensure accuracy supervisor natural gas plant errors may have been included. Yours sincerely, Dr Kevin Robles MD, [facility] - Urology Providers of Expert, Compassionate Care for the Genitourinary System Coding Level of Care Code Tele Est Pt Level 3 (80268) Diagnoses Vasectomy evaluation Z
== END 2024-04-27 15:54 | disposition home or self-care (01) ==
LOC: HO.HUSH 15:30
PROVIDERS: PCP Internal Medicine; Visit Provider Urology
DX: Z30.09 Encounter for other general counseling and advice on contraception (principal)
CPT/HCPCS: 99213

== ENCOUNTER → 2024-04-27 15:30 | Outpatient (BNVA) | payer OTHER, SELFPAY | PROVIDERS: PCP Internal Medicine; Visit Provider Urology ==

== ENCOUNTER 2024-06-14 10:03 | Outpatient (AMB) | payer OTHER, SELFPAY ==
--- NOTE | 2024-06-14 10:33 | A.OFFPC_ITS ---
Vital Signs 3 06/14/24 10:34 Height 6 ft 1 in Weight 187 lb 6 oz BMI 24.7 BP 110/80 Blood Pressure Location Lt brachial Position Sitting Pulse 67 Pulse Source Pulse Oximeter Oxygen Delivery Method Room Air Intake Visit Reasons: RT ankle pain, armpits pain Plate Cutter Required: No Accompanied by: Self / Same As Patient Allergies Seasonal Allergies Allergy (Intermediate, Verified 06/14/24 10:44) Sneezing Medication List - Last Reconciled 06/14/24 by Panfilo Cardozo PA-C fluticasone propionate 50 mcg/actuation 1 spray intranasal DAILY Tobacco use date assessed: 06/14/24 Dental Screening Dental Screen Date: 06/14/24 Did you have a dental visit in the last 12 months?: Yes Did you have a dental problem in the last 6 months where you did not have access to dental care?: No Was dental information given to patient?: Patient has dentist HPI RT ankle pain, armpits pain 2 HPI0 Details The patient is a 44-year-old male presenting with bilateral axillary discomfort and left ankle swelling and pain. The axillary discomfort began approximately two years ago, characterized by intermittent soreness around both armpit regions without specific precipitating events. The discomfort occasionally radiates and lacks association with palpable lumps. The patient reported a possible muscular origin due to previous gym activities affecting the pectoral region. Approximately one month ago, the patient awoke with left ankle swelling without recollection of any injury, which has since intermittently caused pain and functional impairment, notably when pressing down on a pedal. The swelling prompted an urgent care visit, where prednisone was prescribed, resulting in partial symptom relief, although some swelling persisted. Absence of a prior diagnostic imaging study was noted due to unavailability of a photo equipment technician. Examination revealed noticeable swelling when compared to the contralateral ankle, and the patient expressed concern about the possible involvement of bursitis. No history of gout was reported, and there was no recent trauma. 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 [facility] Medical History Right groin pain Upper back pain Tingling Snoring Insomnia Bilateral arm pain Anxiety about health Surgical History H/O left wrist surgery Family History Father Aortic aneurysm Mother S/P CABG x 1 Maternal Grandmother Lung cancer Maternal Grandfather Myocardial infarction Paternal Grandfather Stomach cancer Parkinson disease Paternal Uncle Parkinson disease Social History Housing: House Alcohol intake: current Comment: 4x a week 1 drink Patient Tobacco Use Status: Never used Tobacco e-Cigarette/Vaping Use: Never Used Second Hand Smoke Exposure: No Current occupational status: employed Cognitive needs: No Hearing needs: No Vision needs: No Questionnaire PHQ-9 Over the last 2 weeks, how often have you been bothered by any of the following problems? 1. Little interest or pleasure in doing things: not at all 2. Feeling down, depressed, or hopeless: not at all 3. Trouble falling or staying asleep, or sleeping too much: not at all 4. Feeling tired or having little energy: not at all 5. Poor appetite or overeating: not at all 6. Feeling bad about yourself - or that you are a failure or have let yourself or your family down: not at all 7. Trouble concentrating on things, such as reading the newspaper or watching television: not at all 8. Moving or speaking so slowly that other people could have noticed. Or the opposite - being so fidgety or restless that you have been moving around a lot more than usual: not at all 9. Thoughts that you would be better off or of hurting yourself in some way: not at all Total score: 0 Depression Screening Interpretation: Negative Depression Screening Done: Yes 98573 - PHQ-9 Billing: Yes Source: Developed by Drs. Chepe Haney, Mary Hong, Nader Chase and colleagues, with an educational cecilia from [employer]. Thrive Questionnaire Date Thrive assessed: 06/14/24 I am a: Patient What is your living situation today?: I have a steady place to live Within the past 12 months, did the food you bought not last and you didn't have the money to get more?: Never true Within the past 12 months, did you worry whether your food would run out before you got money to buy more?: Never true Do you have trouble paying for medicines?: No Do you have trouble getting transportation to medical appointments?: No Do you have trouble paying your heating and electricity bill?: No Do you have trouble taking care of your child, family member or friend?: No Do you have trouble with day-to-day activities such as bathing, preparing meals, shopping, managing finances, etc.?: No Are you currently unemployed and looking for a job?: No Are you interested in more education?: No Please select the resources that you would like help with: None Currently or been in a relationship where the following occur: No concerns reported THRIVE Score: 0 AUDIT C Alcohol Use Questionnaire (AUDIT-C) 1. How often do you have a drink containing alcohol?: Monthly or less 2. How many drinks containing alcohol do you have on a typical day when you are drinking?: 1 or 2 3. How often do you have six or more drinks on one occasion?: Never Total Score: 1 Score Reviewed/Action Taken: No ANNIA-7 AMB Questionnaire ANNIA-7 Date ANNIA - 7 assessed: 06/14/24 Feeling nervous, anxious, or on edge: 0 = Not at all Not being able to stop or control worryin = Not at all Worrying too much about different things: 0 = Not at all Trouble relaxin = Not at all Being so restless that it is hard to sit still: 0 = Not at all Becoming easily annoyed or irritable: 0 = Not at all Feeling afraid as if something awful might happen: 0 = Not at all Total ANNIA-7 score (0-4 normal; 5-9 mild; 10-14 moderate; 15-21 severe): 0 Source: Developed by Drs. Chepe Haney, Mary Hong, Nader Chase and colleagues, with an educational cecilia from [employer]. ANNIA-7 Assessment Billing ANNIA-7 Assessment Tool: ANNIA-7 Assessment 66363 Review of Systems Const Denies headache(s) Eyes Denies loss of vision ENT Denies vertigo, Denies dizziness, Denies headache(s) and Denies sore throat Card Denies chest pain, Denies leg edema and Denies lightheadedness Resp Denies cough, Denies hemoptysis and Denies wheezing GI Denies abdominal pain, Denies melena, Denies constipation, Denies diarrhea and Denies vomiting Denies dysuria, Denies urinary frequency and Denies urinary urgency Musc Denies arthralgias, Denies joint swelling, Denies numbness and Denies tingling Neuro Denies Abnormal speech present, Denies behavioral changes, Denies vertigo, Denies dizziness, Denies headache(s), Denies loss of vision, Denies memory loss, Denies numbness and Denies tingling Psych Denies anxiety, Denies behavioral changes, Denies depression, Denies memory loss and Denies panic attacks Carlos/Lymph Denies easy bleeding and Denies easy bruising Aller/Immun Denies wheezing Physical exam (Primary Care) Vital Signs: Last Vital Signs Pulse 67 06/14/24 10:34 BP 110/80 06/14/24 10:34 Oxygen Delivery Method Room Air 06/14/24 10:34 BMI result Body Mass Index 24.7 Tobacco/Smoking Status: Tobacco use Status Tobacco use date assessed 06/14/24 06/14/24 10:39 Patient Tobacco Use Status Never used Tobacco 06/14/24 10:33 e-Cigarette/Vaping Use Never Used 06/14/24 10:33 PHQ-9: PHQ-9 Score PHQ-9: Total score 0 06/14/24 11:07 Depression Screening Interpretation: Negative Thrive Assessment: Date of Thrive Assessment Date Thrive assessed 06/14/24 06/14/24 10:39 Currently or been in a relationship where the following occur: No concerns reported Const General: healthy appearing, no acute distress, alert and awake Nutritional Appearance: well nourished Orientation/consciousness: oriented to person, oriented to place and oriented to time HENMT Ears: TM's normal bilaterally General nose exam: Normal nasal mucous membranes and turbinates present Eyes Conjunctivae: conjunctivae normal Sclerae: sclerae normal Pupils: Equal, round and reactive pupils present Neck Neck: Yes no lymphadenopathy and Yes no JVD Thyroid: Thyroid normal Carotids: no bruits Chest Chest/axillae images: 2 1. TENDERNESS TO PALPATION IN THE AREA OUTLINED 2. TENDERNESS TO PALPATION IN THE AREA OUTLINED Resp Effort & Inspection: normal respiratory effort and not tachypneic Auscultation: no crackles, no rales, no rhonchi and no wheezes Cardio Rate: regular rate Rhythm: regular rhythm Heart sounds: no murmurs and normal S1 and S2 GI Palpation (GI): Soft to palpation, nontender, no hepatomegaly and no splenomegaly Auscultation: normal bowel sounds Skin General skin exam: no rashes or lesions noted and dry skin Neuro General: oriented to person, oriented to place and oriented to time Cranial nerves: Yes Equal, round and reactive pupils present Speech: No Abnormal speech present Gait exam (Neuro): Normal gait present Motor exam (neuro): no tremor noted Extrem Right upper extremity: full ROM Left upper extremity: full ROM Right lower extremity: full ROM; no edema Left lower extremity: full ROM; no edema Ankle/foot/toe images: 2 1. NOTED LOCALIZED SWELLING OVER THE RIGHT LATERAL MALLEOLUS Psych Mental Status: mental status grossly normal Speech and movement: Normal speech and movement present Affect: normal affect Attitude: cooperative Thought process: Normal thought process present Coding Level of Care Code Est Pt Level 4 (89291) Diagnoses Sprain of right ankle, unspecified ligament, subsequent encounter S93.401D Encounter type: subsequent encounter Involved ligament of ankle: unspecified ligament Left axillary pain M79.622 Pain in right axilla M79.621 Strain of trapezius muscle, unspecified laterality, initial encounter S46.819A Encounter type: initial encounter Laterality: unspecified laterality Additional Codes ANNIA-7 Assessment Billing - ANNIA-7 Assessment Tool: ANNIA-7 Assessment 33993 ([id number]) PHQ-9 - 83832 - PHQ-9 Billing: Yes ([id number]) Assessment & Plan Assessment & Plan (1) Right ankle sprain: Code(s): S93.401A - Sprain of unspecified ligament of right ankle, initial encounter Category: Medical Qualifiers: Encounter type: subsequent encounter Involved ligament of ankle: u nspecified ligament Qualified Code(s): S93.401D - Sprain of unspecified ligament of right ankle, subsequent encounter Plan: Patient has obvious swelling over the right lateral malleolus. Unclear etiology at this point. we considered the possibility of a bursitis or inflammatory process in the absence of acute trauma and agreed that an x-ray would be the appropriate first step for evaluation. I explained the potential for progression to an MRI if the initial conservative measures and physical therapy do not result in improvement. (2) Left axillary pain: Code(s): M79.622 - Pain in left upper arm Category: Medical Plan: I discussed with the patient the possible differential diagnoses for the bilateral axillary discomfort, which may include tendinitis or muscular issues related to the pectoral area. We reviewed the potential benefits of initiating imaging to exclude any more serious underlying conditions such as lymph node enlargement. Order ultrasound of axillary regions to assess for potential lymphadenopathy or other underlying conditions. (3) Pain in right axilla: Code(s): M79.621 - Pain in right upper arm Category: Medical Plan: As above (4) Trapezius muscle strain: Code(s): S46.819A - Strain of other muscles, fascia and tendons at shoulder and upper arm level, unspecified arm, initial encounter Category: Medical Qualifiers: Encounter type: initial encounter Laterality: unspecified laterality Q ualified Code(s): S46.819A - Strain of other muscles, fascia and tendons at shoulder and upper arm level, unspecified arm, initial encounter Plan: As above, will likely benefit from physical therapy due to a possible trapezius muscle strain Orders: Orders 2 XR ankle RT 2V 06/14/24 S93.401D - Sprain of unspecified ligament of right ankle, subsequent encounter PT Evaluation and Treatment 06/14/24 S46.819A - Strain of other muscles, fascia and tendons at shoulder and upper arm level, unspecified arm, initial encounter US extremity nonvascular 06/14/24 M79.621 - Pain in right upper arm
[2024-06-14 10:34] VITALS: BP 110/80; PULSE 67; BMI 24.7
== END 2024-06-14 11:13 | disposition home or self-care (01) ==
PROVIDERS: PCP Internal Medicine; Visit Provider Physician Assistant
DX: M79.622 Pain in left upper arm (principal); M79.621 Pain in right upper arm; S93.401A Sprain of unspecified ligament of right ankle, initial encounter; S46.819A Strain of other muscles, fascia and tendons at shoulder and upper arm level, unspecified arm, initial encounter

== ENCOUNTER → 2024-06-14 10:03 | Outpatient (BNVA) | payer OTHER, SELFPAY | PROVIDERS: PCP Internal Medicine; Visit Provider Physician Assistant | DX: S93.401D Sprain of unspecified ligament of right ankle, subsequent encounter (principal); M79.622 Pain in left upper arm; M79.621 Pain in right upper arm; S46.819A Strain of other muscles, fascia and tendons at shoulder and upper arm level, unspecified arm, initial encounter | CPT/HCPCS: 96127 ==

== ENCOUNTER 2024-06-22 15:13 | Outpatient (REF) | payer OTHER, SELFPAY ==
--- NOTE | ~2024-06-22 | XR_ITS ---
CLINICAL HISTORY: S93.401D - Sprain of unspecified ligament of right ankle, subsequent enc... 3 view right ankle Comparison: None Findings: There are small ossific bodies within both the anterior and posterior aspects of the ankle of uncertain age. No dislocation. No significant loss of joint space, osteophytes, or erosions. No ankle effusion. No radiopaque foreign body. IMPRESSION: Small bone fragments within the anterior and posterior aspects of the ankle of uncertain age. This document has been electronically signed by: Jocelyn Presley MD on 06/22/2024 16:10:41
--- NOTE | ~2024-06-22 | US_ITS ---
EXAMINATION: US EXTREMITY MUSCULOSKELETAL HISTORY: M79.621 - Pain in right upper arm axillary region COMPARISON: There are no prior studies for comparison. FINDINGS: Sonographic examination of a palpable abnormality in the right axilla was performed. No sonographic abnormality is identified. No enlarged lymph nodes are seen. US/US extremity nonvascular IMPRESSION: No sonographic abnormality is seen to correspond to the palpable findings in the right axilla. Electronically signed by: Chepe George MD 06/22/2024 03:32 PM [facility]
== END 2024-06-22 15:14 | disposition home or self-care (01) ==
LOC: HO.HMGCX 15:13
PROVIDERS: PCP Internal Medicine; Visit Provider Physician Assistant
DX: M79.621 Pain in right upper arm (principal); S93.401D Sprain of unspecified ligament of right ankle, subsequent encounter
CPT/HCPCS: 73610; 76882

== ENCOUNTER → 2024-06-22 15:16 | Outpatient (BNV) | payer OTHER, SELFPAY | PROVIDERS: PCP Internal Medicine; Visit Provider Radiology Diagnostic Radiology | DX: M79.621 Pain in right upper arm (principal); S93.401D Sprain of unspecified ligament of right ankle, subsequent encounter | CPT/HCPCS: 73610; 76882 ==

== ENCOUNTER 2024-07-12 12:31 | Outpatient (REF) | payer OTHER, SELFPAY ==
[2024-07-12 15:35] LABS: Influenza A PCR NEGATIVE (Negative); Influenza B PCR POSITIVE (Negative); Resp Syncy Virus RNA Qual PCR NEGATIVE (Negative); SARS COV2 PCR INHOUSE NEGATIVE (Negative)
== END 2024-07-12 12:32 | disposition home or self-care (01) ==
LOC: HO.LAB 12:31
PROVIDERS: PCP Internal Medicine; Visit Provider Internal Medicine
DX: Z00.00 Encounter for general adult medical examination without abnormal findings (principal); Z23 Encounter for immunization; F41.1 Generalized anxiety disorder; R05.9 Cough, unspecified; M25.371 Other instability, right ankle; J10.1 Influenza due to other identified influenza virus with other respiratory manifestations
CPT/HCPCS: 0241U; 90471; 90656

== ENCOUNTER 2024-07-12 12:31 | Outpatient (AMB) | payer OTHER, SELFPAY ==
--- NOTE | 2024-07-12 12:33 | A.OFFPC_ITS ---
Vital Signs 07/12/24 12:35 Height 6 ft 1 in Weight 185 lb BMI 24.4 BP 122/80 Blood Pressure Location Lt brachial Position Sitting Pulse 72 Pulse Source Pulse Oximeter Pulse Oximetry (%) 99 Oxygen Delivery Method Room Air Intake Visit Reasons: Annual Exam Intake Note: Patient here for an annual physical exam, c/o aches [employer] Required: No Accompanied by: Self / Same As Patient Allergies Seasonal Allergies Allergy (Intermediate, Verified 07/12/24 12:38) Sneezing Medication List - Last Reconciled 07/12/24 by Erik Villasenor MD ascorbic acid (vitamin C) 1 g PO Q6H fluticasone propionate 50 mcg/actuation 1 spray intranasal DAILY thyme oil ea miscellaneous vit C-zinc citrate-elderberry 45-3.75-50 mg (Elderberry [employer] [facility]) tabs PO Tobacco use date assessed: 07/12/24 Dental Screening Dental Screen Date: 07/12/24 Did you have a dental visit in the last 12 months?: Yes Did you have a dental problem in the last 6 months where you did not have access to dental care?: No Was dental information given to patient?: Patient has dentist HPI Annual Exam HPI Details The patient is a 44-year-old male presenting with a request for a physical exam. He has a history of generalized anxiety disorder and insomnia. He was last seen in July 2023 for epididymitis and shoulder pain. He has a past medical history of a mild inguinal hernia and recently consulted orthopedics on July 02 for ankle pain, where conservative treatment with physical therapy was advised. X-ray results indicated small bone fragments in the anterior and posterior aspects of the ankle. The patient had an ultrasound of the right upper arm, which was negative for abnormalities. He sought urgent care on June 06 for right ankle swelling and was prescribed steroids. In April, he visited urology for a history of epididymitis, and surgery in October revealed chronic infection. The patient reports a favorable recovery following excision. Laboratory analysis in 2022 indicated chronic mild leukopenia with otherwise normal renal function, and an LDL cholesterol level of 129 mg/dL was noted in January 2022. The patient is also managing blood pressure effectively and has lost weight recently. He uses a nasal spray and inquires about its refill. His current supplementation regimen includes vitamin C and elderberry. - Influenza vaccination was not received this year; a discussion to receive the shot before the end of flu season was held. - The patient had last cholesterol check ed in January 2022 with an LDL of 129 mg/dL. - Blood pressure management discussed; c urrently stable. - Discussion on vitamin C and elderberry supplementation for immune support. - Recommended complete blood work for up dated health status assessment. 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 - Alcohol Use: Consumes alcohol three da ys a week, 1-2 drinks per occasion. - Tobacco Use: Denies current or past ci garette use. - Drug Use: Denies use of recreational d rugs. - Exercise: Recently resumed going to [employer] to stay active. - Family History: Grandmother with lung cancer, grandfather with stomach cancer, and mother with a history of double bypass surgery. - Nutrition: Occasionally uses thyme ess ential oil with avocado oil, vitamin C, and elderberry supplements. - Neurological: Denies dizziness, passin g out. - Gastrointestinal: Denies heartburn, di arrhea, constipation. - Genitourinary: Denies nocturia, dysuri a. - Respiratory: Denies chest pain, shortn ess of breath. - Musculoskeletal: No recent swelling; r esumed gym activity. - Vision: Denies changes in vision, last eye examination date unknown. - Hearing: Denies hearing loss. - General: Denies nausea, vomiting, feve r. - X-ray: Ankle showing small bone fragme nts of uncertain age. - Blood Work (2021): Mild chronic leukop enia. - Cholesterol levels (January 2022): L DL of 129 mg/dL. FORMERLY [facility], [facility] Medical History Right groin pain Upper back pain Tingling Snoring Insomnia Bilateral arm pain Anxiety about health Surgical History H/O left wrist surgery Family History Father Aortic aneurysm Mother S/P CABG x 1 Maternal Grandmother Lung cancer Maternal Grandfather Myocardial infarction Paternal Grandfather Stomach cancer Parkinson disease Paternal Uncle Parkinson disease Social History (Updated 07/12/24 @ 13:00 by Erik Villasenor MD) Housing: House Alcohol intake: current Comment: 3x a week 1-2 drink Patient Tobacco Use Status: Never used Tobacco e-Cigarette/Vaping Use: Never Used Second Hand Smoke Exposure: No service: No Current occupational status: employed Current occupational exposures/hazards: No Cognitive needs: No Hearing needs: No Vision needs: No Questionnaire PHQ-9 Over the last 2 weeks, how often have you been bothered by any of the following problems? 1. Little interest or pleasure in doing things: not at all 2. Feeling down, depressed, or hopeless: not at all 3. Trouble falling or staying asleep, or sleeping too much: not at all 4. Feeling tired or having little energy: not at all 5. Poor appetite or overeating: not at all 6. Feeling bad about yourself - or that you are a failure or have let yourself or your family down: not at all 7. Trouble concentrating on things, such as reading the newspaper or watching television: not at all 8. Moving or speaking so slowly that other people could have noticed. Or the opposite - being so fidgety or restless that you have been moving around a lot more than usual: not at all 9. Thoughts that you would be better off or of hurting yourself in some way: not at all Total score: 0 Depression Screening Interpretation: Negative Depression Screening Done: Yes Source: Developed by Drs. Chepe Haney, Mary Hong, Nader Chase and colleagues, with an educational cecilia from [employer]. Thrive Questionnaire Date Thrive assessed: 07/12/24 I am a: Patient What is your living situation today?: I have a steady place to live Within the past 12 months, did the food you bought not last and you didn't have the money to get more?: Never true Within the past 12 months, did you worry whether your food would run out before you got money to buy more?: Never true Do you have trouble paying for medicines?: No Do you have trouble getting transportation to medical appointments?: No Do you have trouble paying your heating and electricity bill?: No Do you have trouble taking care of your child, family member or friend?: No Do you have trouble with day-to-day activities such as bathing, preparing meals, shopping, managing finances, etc.?: No Are you currently unemployed and looking for a job?: No Are you interested in more education?: No Please select the resources that you would like help with: None Currently or been in a relationship where the following occur: No concerns reported THRIVE Score: 0 AUDIT C Alcohol Use Questionnaire (AUDIT-C) 1. How often do you have a drink containing alcohol?: 2-3 times a week 2. How many drinks containing alcohol do you have on a typical day when you are drinking?: 1 or 2 3. How often do you have six or more drinks on one occasion?: Never Total Score: 3 ANNIA-7 AMB Questionnaire ANNIA-7 Date ANNIA - 7 assessed: 07/12/24 Feeling nervous, anxious, or on edge: 0 = Not at all Not being able to stop or control worryin = Not at all Worrying too much about different things: 0 = Not at all Trouble relaxin = Not at all Being so restless that it is hard to sit still: 0 = Not at all Becoming easily annoyed or irritable: 0 = Not at all Feeling afraid as if something awful might happen: 0 = Not at all Total ANNIA-7 score (0-4 normal; 5-9 mild; 10-14 moderate; 15-21 severe): 0 Source: Developed by Drs. Chepe Haney, Mary Hong, Nader Chase and colleagues, with an educational cecilia from [employer]. Review of Systems Const Denies poor appetite and Denies weakness Eyes Denies no additional complaints ENT Reports Normal hearing present, Denies dizziness, Denies nasal congestion, Denies tinnitus and Denies sore throat Card Denies chest pain, Denies syncope, Denies rapid heart rate and Denies dyspnea Resp Denies cough and Denies dyspnea GI Denies change in stool character, Reports constipation, Denies diarrhea, Denies nausea and Denies vomiting Denies dysuria and Denies urinary frequency Neuro Reports Normal hearing present, Denies confusion, Denies dizziness, Denies syncope and Denies weakness Psych Denies confusion Physical exam (Primary Care) Vital Signs: Last Vital Signs Pulse 72 07/12/24 12:35 BP 122/80 07/12/24 12:35 Pulse Ox 99 07/12/24 12:35 Oxygen Delivery Method Room Air 07/12/24 12:35 BMI result Body Mass Index 24.4 Tobacco/Smoking Status: Tobacco use Status Tobacco use date assessed 07/12/24 07/12/24 12:41 Patient Tobacco Use Status Never used Tobacco 07/12/24 13:00 e-Cigarette/Vaping Use Never Used 07/12/24 13:00 PHQ-9: PHQ-9 Score PHQ-9: Total score 0 07/12/24 13:10 Depression Screening Interpretation: Negative Thrive Assessment: Date of Thrive Assessment Date Thrive assessed 07/12/24 07/12/24 12:41 Currently or been in a relationship where the following occur: No concerns reported Const General: No confusion Orientation/consciousness: No confusion HENMT Head: Yes normocephalic Ears: external ears normal and TM's normal bilaterally Face and sinus: Yes normal facial exam Mouth: moist mucous membranes Throat: Yes tonsils normal Eyes Conjunctivae: conjunctivae normal Pupils: Equal, round and reactive pupils present and Pupil accommodation reflex normal Direct Ophthalmoscopy: normal light reflex Neck Neck: No lymphadenopathy Thyroid: Thyroid normal Chest Chest palpation & inspection: normal inspection of the chest Resp Effort & Inspection: normal respiratory effort and no audible wheezes Auscultation: clear to auscultation bilaterally, no crackles, no wheezes and lung sounds not diminished Cardio Rate: regular rate Rhythm: regular rhythm Peripheral pulses: radial pulses present and dorsalis pedis present GI Other: visual inspection Nommal rectal exam Palpation (GI): no masses Auscultation: normal bowel sounds and normoactive bowel sounds Male General Exam: Yes normal external exam Skin General skin exam: no rashes or lesions noted Rashes: no rashes Neuro General: No confusion Cranial nerves: Yes Equal, round and reactive pupils present and Yes Normal hearing present Cognition (Neuro): normal cognition Gait exam (Neuro): Normal gait present Motor exam (neuro): 5/5 motor strength present throughout Deep tendon reflexes (DTR's): Right brachioradialis reflex intensity grade: 2+, Left brachioradialis reflex intensity grade: 2+, Right patellar reflex intensity grade: 2+ and Left patellar reflex intensity grade: 2+ Extrem General: No edema Office Procedures Flu Questionnaire Does the patient have a severe egg allergy?: No Does the patient have severe life threatening allergies?: No Does the patient have a fever or illness today?: No Has the patient ever had Guillain-Webster Syndrome?: No Has the patient ever had any past reaction to a flu shot?: No Immunizations Fluarix Triv 5739-7312 (PF) 45 mcg (15 mcg x 3)/0.5 mL IM syringe Performing Provider: Erik Villasenor MD [facility] Administered by: LEONID Chan on 07/12/24 13:10 Dose Route Admin Location Dispensed Lot Number Expiration Date 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 mL IM Left Deltoid 0.5 mL [id number] 11/29/24 [id number] [employer] VIS Given Date VIS Provided VIS Publication Date 07/12/24 Single Vaccine 21 Eligibility Eligibility Date Funding Source Not [facility] Eligible 07/12/24 Private Coding Level of Care Code Est Pt Prev Care 40-64y([id number]) Diagnoses Annual physical exam Z00.00 Generalized anxiety disorder F41.1 Right ankle instability M25.371 Cough R05.9 Assessment & Plan Assessment & Plan (1) Annual physical exam: Code(s): Z00.00 - Encounter for general adult medical examination without abnormal findings Category: Medical (2) Generalized anxiety disorder: Code(s): F41.1 - Generalized anxiety disorder Category: Medical (3) Right ankle instability: Code(s): M25.371 - Other instability, right ankle Category: Medical (4) Cough: Code(s): R05.9 - Cough, unspecified Category: Medical Plan - Advise continued physical therapy for ankle pain as prescribed by orthopedics. - Prescribe nasal spray refill as requested. - Administer influenza vaccination today if feasible. - Request complete blood work including cholesterol levels and assessment. - Reinforce the use of immune support supplements as discussed. - Encourage continuation of physical activity and weight management strategies. During the consultation, we reviewed the patient's request for a physical exam and addressed his ongoing health issues. We discussed the management plan for his ankle pain, emphasizing the importance of physical therapy as advised by orthopedics. The patient expressed a desire to have a complete blood workup, and I arranged for the necessary blood tests. Additionally, we talked about the preventive measures against the flu, and I encouraged receiving the flu shot today. No new acute issues were identified, and we focused on health maintenance, including monitoring his cholesterol levels and immune health supplements. I provided instructions for fasting prior to the blood draw and confirmed the refill of his nasal spray. - Proceed with the complete blood work as requested, remember to fast. - Receive the influenza vaccine today if you feel well enough. - Continue using the nasal spray as prescribed. - Stay hydrated and maintain a balanced diet with vitamin C and elderberry as supplements. - Engage in regular physical activity and monitor joint health. - Follow up for any new or worsening symptoms, especially respiratory or joint- related concerns. - Contact us if you have any questions about the instructions or experience any adverse reactions. Orders: Orders Lipid Panel Today E53.8 - Deficiency of other specified B group vitamins, E78.00 - Pure hypercholesterolemia, unspecified Thyroid Stimulating Hormone Today E53.8 - Deficiency of other specified B group vitamins Vitamin B12 and Folate Today E53.8 - Deficiency of other specified B group vitamins SARS-CoV2/FLU/RSV Today R05.9 - Cough, unspecified Complete Blood Count Auto Diff Today E53.8 - Deficiency of other specified B group vitamins Comprehensive Met. Panel Today E53.8 - Deficiency of other specified B group vitamins Free T4 (Free Thyroxine) Today E53.8 - Deficiency of other specified B group vitamins Influenza [id number] Immunization Today Z23 - Encounter for immunization Medications: Refilled fluticasone propionate 50 mcg/actuation administer into each nostril 1 spray intranasal DAILY 16 grams 11RF E53.8 - Deficiency of other specified B group vitamins
[2024-07-12 12:35] VITALS: BP 122/80; PULSE 72; O2SAT 99; BMI 24.4
== END 2024-07-12 13:16 | disposition home or self-care (01) ==
PROVIDERS: PCP Internal Medicine; Visit Provider Internal Medicine
DX: Z00.00 Encounter for general adult medical examination without abnormal findings (principal); F41.1 Generalized anxiety disorder; M25.371 Other instability, right ankle; R05.9 Cough, unspecified; Z23 Encounter for immunization